=== PATIENT | male | born 1960 ===

== ENCOUNTER 2020-10-02 08:01 | Outpatient (REF) | payer OTHER, SELFPAY ==
--- NOTE | ~2020-10-02 | XR_ITS ---
EXAMINATION: XR HIP, RIGHT CLINICAL INFORMATION: Pain COMPARISON: None TECHNIQUE: Two views of the right hip. FINDINGS: Bone alignment is normal. No fracture, dislocation or bone lesion is seen. There is mild arthritis with joint space narrowing and small osteophytes at the right hip joint. Soft tissues are unremarkable. XR/XR hip RT min 2V IMPRESSION: Mild right hip arthritis.
[2020-10-02 09:08] LABS: Alanine Aminotransferase 27 U/L (0-40); Albumin Level 4.3 g/dL (3.5-5.0); Alkaline Phosphatase 91 U/L (39-117); Anion Gap 13 (12-20); Aspartate Amino Transferase 20 U/L (5-37); Bilirubin Direct 0.3 mg/dL (0.0-0.5); Bilirubin Total 0.7 mg/dL (0.0-1.0); Blood Urea Nitrogen 14 mg/dL (9-16); Calcium 9.2 mg/dL (8.4-10.2); Carbon Dioxide 23 mmol/L (22-29); Chloride 109 mmol/L (96-108); Estimated Glomerular Filt Rate > 60; Glucose Fasting 103 mg/dL (60-99); Potassium 4.5 mmol/L (3.3-5.1); Sodium 140 mmol/L (135-145); Total Protein 7.4 g/dL (6.5-8.0)
[2020-10-02 09:30] LABS: TSH reflex Free T4 1.22 uIU/mL (0.32-4.0)
[2020-10-06 10:11] LABS: Vitamin D 25-OH, D2 <4 ng/mL; Vitamin D 25-OH, D3 29 ng/mL; Vitamin D 25-OH, Total 29 ng/mL (30-100)
== END 2020-10-02 08:02 | disposition home or self-care (01) ==
LOC: HO.LAB 08:01
PROVIDERS: PCP Internal Medicine; Visit Provider Internal Medicine
DX: Z00.01 Encounter for general adult medical examination with abnormal findings (principal); M25.551 Pain in right hip; E66.9 Obesity, unspecified
CPT/HCPCS: 36415; 73502; 80053; 80076; 82248; 82306; 84443

== ENCOUNTER 2021-04-27 12:50 | Outpatient (REF) | payer OTHER, SELFPAY ==
[2021-04-27 14:13] LABS: MANUAL DIFF FLAG NO
[2021-04-27 14:19] LABS: Basophils Percent Auto 0.4 % (0-2); Eosinophils Absolute Auto 0.6 X10*3/uL (0.0-0.4); Hematocrit 41.5 % (42.0-52.0); Hemoglobin 13.9 g/dl (14.0-18.0); Imm Gran Abs Auto 0.01 X10*3/uL (0.00-0.03); Imm Gran Pct Auto 0.1 % (0.0-0.4); Lymphocytes Absolute Auto 2.1 X10*3/uL (1.2-4.9); Lymphocytes Percent Auto 30.7 % (20-40); Mean Corpuscular HGB Conc 33.5 g/dl (31.0-36.0); Mean Corpuscular Hemoglobin 30.6 pg (27.0-33.0); Mean Corpuscular Volume 91.4 fL (80.0-98.0); Mean Platelet Volume 10.4 fL (9.4-12.4); Monocytes Absolute Auto 0.5 X10*3/uL (0.1-1.2); Monocytes Percent Auto 7.4 % (2-11); Neutrophils Absolute Auto 3.6 x10*3/uL (2.0-8.3); Neutrophils Percent Auto 52.4 % (45-73); Platelet Count 235 X10*3/uL (160-400); Red Blood Count 4.54 X10*6/uL (4.60-5.80); White Blood Count 6.9 X10*3/uL (4.8-10.8)
[2021-04-27 14:29] LABS: Estimated Average Glucose 108 mg/dL; Hemoglobin A1c % 5.4 %
[2021-04-27 14:48] LABS: Alanine Aminotransferase 60 U/L (0-40); Albumin Level 4.4 g/dL (3.5-5.0); Alkaline Phosphatase 96 U/L (39-117); Anion Gap 13 (12-20); Aspartate Amino Transferase 39 U/L (5-37); Bilirubin Total 0.4 mg/dL (0.0-1.0); Blood Urea Nitrogen 21 mg/dL (9-16); Calcium 9.2 mg/dL (8.4-10.2); Carbon Dioxide 22 mmol/L (22-29); Chloride 111 mmol/L (96-108); Estimated Glomerular Filt Rate > 60; Glucose Random 93 mg/dL (60-115); Potassium 4.5 mmol/L (3.3-5.1); Sodium 141 mmol/L (135-145); Total Protein 7.6 g/dL (6.5-8.0)
[2021-04-27 15:08] LABS: TSH reflex Free T4 1.89 uIU/mL (0.32-4.0)
[2021-04-29 05:56] LABS: LDL Cholesterol Direct 92 mg/dL (<100)
== END 2021-04-27 12:51 | disposition home or self-care (01) ==
LOC: HO.HMGCLDS 12:50
PROVIDERS: PCP Internal Medicine; Visit Provider Internal Medicine
DX: E66.09 Other obesity due to excess calories (principal); J30.9 Allergic rhinitis, unspecified; M00.859 Arthritis due to other bacteria, unspecified hip; R73.01 Impaired fasting glucose; I10 Essential (primary) hypertension
CPT/HCPCS: 36415; 80053; 83036; 83721; 84443; 85025

== ENCOUNTER 2021-10-20 06:51 | Outpatient (REF) | payer OTHER, SELFPAY ==
[2021-10-20 07:01] LABS: MANUAL DIFF FLAG NO
[2021-10-20 07:24] LABS: Basophils Percent Auto 0.4 % (0-2); Eosinophils Absolute Auto 0.7 X10*3/uL (0.0-0.4); Eosinophils Percent Auto 9.9 % (0-4); Hematocrit 42.5 % (42.0-52.0); Hemoglobin 14.5 g/dl (14.0-18.0); Imm Gran Abs Auto 0.01 X10*3/uL (0.00-0.03); Imm Gran Pct Auto 0.1 % (0.0-0.4); Lymphocytes Absolute Auto 2.6 X10*3/uL (1.2-4.9); Lymphocytes Percent Auto 38.1 % (20-40); Mean Corpuscular HGB Conc 34.1 g/dl (31.0-36.0); Mean Corpuscular Hemoglobin 31.4 pg (27.0-33.0); Mean Platelet Volume 10.1 fL (9.4-12.4); Monocytes Absolute Auto 0.6 X10*3/uL (0.1-1.2); Monocytes Percent Auto 8.3 % (2-11); Neutrophils Absolute Auto 2.9 x10*3/uL (2.0-8.3); Neutrophils Percent Auto 43.2 % (45-73); Platelet Count 226 X10*3/uL (160-400); Red Blood Count 4.62 X10*6/uL (4.60-5.80); Red Cell Distribution Width 12.9 % (11.0-16.0); White Blood Count 6.8 X10*3/uL (4.8-10.8)
[2021-10-20 07:50] LABS: Alanine Aminotransferase 50 U/L (0-40); Albumin Level 4.4 g/dL (3.5-5.0); Alkaline Phosphatase 86 U/L (39-117); Anion Gap 9 (12-20); Aspartate Amino Transferase 37 U/L (5-37); Bilirubin Total 0.9 mg/dL (0.0-1.0); Blood Urea Nitrogen 19 mg/dL (9-16); Calcium 9.6 mg/dL (8.4-10.2); Carbon Dioxide 25 mmol/L (22-29); Chloride 109 mmol/L (96-108); Cholesterol 158 mg/dL; Estimated Glomerular Filt Rate > 60; Glucose Fasting 110 mg/dL (60-99); HDL Cholesterol 58 mg/dL; LDL Cholesterol Calculated 92 mg/dl; Potassium 4.4 mmol/L (3.3-5.1); Sodium 139 mmol/L (135-145); Total Protein 7.4 g/dL (6.5-8.0); Triglycerides 42 mg/dL
== END 2021-10-20 06:52 | disposition home or self-care (01) ==
LOC: HO.LAB 06:51
PROVIDERS: PCP Internal Medicine; Visit Provider Internal Medicine
DX: Z00.01 Encounter for general adult medical examination with abnormal findings (principal); I10 Essential (primary) hypertension; R73.01 Impaired fasting glucose; E66.09 Other obesity due to excess calories
CPT/HCPCS: 36415; 80053; 80061; 85025

== ENCOUNTER 2022-04-19 05:58 | Outpatient (REF) | payer OTHER, SELFPAY ==
[2022-04-19 08:24] LABS: Alanine Aminotransferase 101 U/L (0-40); Albumin Level 4.6 g/dL (3.5-5.0); Alkaline Phosphatase 94 U/L (39-117); Anion Gap 15 (12-20); Aspartate Amino Transferase 62 U/L (5-37); Bilirubin Total 0.9 mg/dL (0.0-1.0); Blood Urea Nitrogen 16 mg/dL (9-16); Calcium 9.6 mg/dL (8.4-10.2); Carbon Dioxide 23 mmol/L (22-29); Chloride 104 mmol/L (96-108); Estimated Glomerular Filt Rate > 60; Glucose Random 106 mg/dL (60-115); Potassium 4.4 mmol/L (3.3-5.1); Sodium 138 mmol/L (135-145); Total Protein 7.8 g/dL (6.5-8.0)
[2022-04-19 09:27] LABS: Estimated Average Glucose 108 mg/dL; Hemoglobin A1c % 5.4 %
== END 2022-04-19 05:59 | disposition home or self-care (01) ==
LOC: HO.LAB 05:58
PROVIDERS: PCP Internal Medicine; Visit Provider Internal Medicine
DX: E66.09 Other obesity due to excess calories (principal); I10 Essential (primary) hypertension; J30.9 Allergic rhinitis, unspecified; M00.859 Arthritis due to other bacteria, unspecified hip; R73.01 Impaired fasting glucose
CPT/HCPCS: 36415; 80053; 83036

== ENCOUNTER 2022-06-30 07:25 | Outpatient (REF) | payer OTHER, SELFPAY ==
--- NOTE | ~2022-06-30 | US_ITS ---
EXAMINATION: US ABDOMEN LIMITED CLINICAL INFORMATION: Elevated LFTs. COMPARISON: None TECHNIQUE: Real-time imaging of the right upper quadrant abdominal viscera. FINDINGS: PANCREAS: Normal. The visualized pancreatic head and body are normal in appearance. The remainder of the pancreas is obscured from visualization by the overlying bowel gas. LIVER: The liver is normal in size. The liver contour is normal. There is diffuse increased liver parenchymal echogenicity. No focal hepatic lesion. There is no intrahepatic biliary duct dilatation seen. GALLBLADDER: Normal. The gallbladder is physiologically distended without evidence of stones, sludge, polyps, wall thickening or pericholecystic fluid. COMMON BILE DUCT: Normal in caliber measuring 0.3 cm in diameter. RIGHT KIDNEY: At the interpolar aspect, a 5 mm benign, simple cyst is seen. No hydronephrosis or renal calculi. The kidney measures 10.5 cm in maximum dimension. FREE FLUID: None. US/US abdomen limited IMPRESSION: 1. There is generalized increase in hepatic echotexture, consistent with fatty infiltration or hepatocellular disease. Please correlate clinically. No focal hepatic mass or intrahepatic biliary dilatation is seen. 2. A 5 mm benign, simple right renal cyst is incidentally seen, for which no imaging follow-up is recommended. 3. Technically limited ultrasound examination of the pancreatic tail.
== END 2022-06-30 07:26 | disposition home or self-care (01) ==
LOC: HO.US 07:25
PROVIDERS: PCP Internal Medicine; Visit Provider Internal Medicine
DX: R79.89 Other specified abnormal findings of blood chemistry (principal)
CPT/HCPCS: 76705

== ENCOUNTER 2022-08-25 12:44 | Outpatient (REF) | payer OTHER, SELFPAY ==
[2022-08-25 13:58] LABS: MANUAL DIFF FLAG NO
[2022-08-25 14:05] LABS: Basophils Percent Auto 0.3 % (0-2); Eosinophils Absolute Auto 0.4 X10*3/uL (0.0-0.4); Eosinophils Percent Auto 5.5 % (0-4); Hematocrit 43.2 % (42.0-52.0); Hemoglobin 14.7 g/dl (14.0-18.0); Imm Gran Abs Auto 0.01 X10*3/uL (0.00-0.03); Imm Gran Pct Auto 0.1 % (0.0-0.4); Lymphocytes Absolute Auto 2.3 X10*3/uL (1.2-4.9); Lymphocytes Percent Auto 28.8 % (20-40); Mean Corpuscular Hemoglobin 30.4 pg (27.0-33.0); Mean Corpuscular Volume 89.4 fL (80.0-98.0); Mean Platelet Volume 10.4 fL (9.4-12.4); Monocytes Absolute Auto 0.7 X10*3/uL (0.1-1.2); Monocytes Percent Auto 8.4 % (2-11); Neutrophils Absolute Auto 4.5 x10*3/uL (2.0-8.3); Neutrophils Percent Auto 56.9 % (45-73); Platelet Count 231 X10*3/uL (160-400); Red Blood Count 4.83 X10*6/uL (4.60-5.80); Red Cell Distribution Width 12.7 % (11.0-16.0); White Blood Count 7.9 X10*3/uL (4.8-10.8)
[2022-08-25 14:34] LABS: Alanine Aminotransferase 34 U/L (0-40); Albumin Level 4.2 g/dL (3.5-5.0); Alkaline Phosphatase 76 U/L (39-117); Anion Gap 15 (12-20); Aspartate Amino Transferase 22 U/L (5-37); Bilirubin Total 0.7 mg/dL (0.0-1.0); Blood Urea Nitrogen 19 mg/dL (9-16); Calcium 9.5 mg/dL (8.4-10.2); Carbon Dioxide 22 mmol/L (22-29); Chloride 108 mmol/L (96-108); Estimated Glomerular Filt Rate > 60; Glucose Random 124 mg/dL (60-115); Potassium 4.6 mmol/L (3.3-5.1); Sodium 140 mmol/L (135-145); Total Protein 7.2 g/dL (6.5-8.0)
[2022-08-25 15:26] LABS: Estimated Average Glucose 111 mg/dL; Hemoglobin A1c % 5.5 %
[2022-08-27 10:08] LABS: LDL Cholesterol Direct 98 mg/dL (<100)
== END 2022-08-25 12:45 | disposition home or self-care (01) ==
LOC: HO.HMGCLDS 12:44
PROVIDERS: PCP Internal Medicine; Visit Provider Internal Medicine
DX: E66.09 Other obesity due to excess calories (principal); M00.859 Arthritis due to other bacteria, unspecified hip; R73.01 Impaired fasting glucose; R79.89 Other specified abnormal findings of blood chemistry; I10 Essential (primary) hypertension
CPT/HCPCS: 36415; 80053; 83036; 83721; 85025

== ENCOUNTER 2022-12-22 08:58 | Outpatient (AMB) | payer OTHER, SELFPAY ==
[2022-12-22 09:01] VITALS: BP 174/92; PULSE 77; O2SAT 98; BMI 33.4
--- NOTE | 2022-12-22 09:01 | A.OFFPC_ITS ---
Vital Signs 12/22/22 09:01 Height 5 ft 6 in Weight 207 lb 4 oz BMI 33.4 BP 174/92 H Blood Pressure Location Rt brachial Position Sitting Pulse 77 Pulse Source Pulse Oximeter Pulse Oximetry (%) 98 Oxygen Delivery Method Room Air Intake Visit Reasons: Annual PE Allergies N.K.D.A. Allergy (Mild, Uncoded 08/25/22 12:21) none Medication List - Last Reconciled 12/22/22 by Poonam Palomares MD atenolol 50 mg PO DAILY 90 days cetirizine (Zyrtec) 10 mg PO DAILY PRN 90 days fluticasone propionate 50 mcg/actuation (Flonase Allergy Relief) 1 spray intranasal BID 30 days meloxicam 7.5 mg PO DAILY 90 days omeprazole 40 mg PO DAILY Tobacco use date assessed: 12/22/22 Dental Screening Dental Screen Date: 12/22/22 Did you have a dental visit in the last 12 months?: Yes Did you have a dental problem in the last 6 months where you did not have access to dental care?: No Was dental information given to patient?: No HPI Annual PE HPI Details Physical exam appointment Blood pressure medication changed to atenolol chlorthalidone 50-25 , currently patient is taking atenolol 50 mg blood pressure is 174/92 Other medications are omeprazole 40 mg for chronic GERD Meloxicam for bilateral hip osteoarthritis Flonase nasal spray for allergic rhinitis On examination today patient have limited range of motion of right shoulder patient says that he had a tendinitis surgery 5 years ago and since then he has discomfort so he preferred not to raise all the way up I discussed with the patient that if he stopped moving the shoulder he is going to developed a frozen shoulder. Labs were done August of this year new set of lab will be done before next visit in 3 months for regular appointment But patient need to return in 3 weeks for blood pressure monitoring he need to bring his blood pressure log along Colonoscopy report that I have in the system is from 23/05 patient had a tubular adenoma I have sent a message and also created a referral for him to see gastroenterology [facility] Social History Housing: House Alcohol intake: current Alcohol intake frequency: a few times a month Patient Tobacco Use Status: Never used Tobacco e-Cigarette/Vaping Use: Never Used service: No Current occupational status: employed 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 How often do you have a drink containing alcohol?: 2-4 times a month 2. How many drinks containing alcohol do you have on a typical day when you are drinking?: 1 or 2 3. How often do you have six or more drinks on one occasion?: Never Total Score: 2 Score Reviewed/Action Taken: Yes JONN-7 AMB Questionnaire JONN-7 Date JONN - 7 assessed: 09/23/21 Source: Developed by Drs. Robert Anglin, Pascale Blankenship, Glenn Blue and colleagues, with an educational ehsan from [employer]. Review of Systems Const Denies chills, Denies fever(s) and Denies headache(s) Eyes Denies blurry vision ENT Denies headache(s), Denies nasal discharge, Denies nasal obstruction, Denies odynophagia and Denies sinus pain Card Denies chest pain at rest and Denies chest pain with activity Resp Denies cough and Denies hemoptysis GI Denies diarrhea, Denies odynophagia, Denies vomiting and Denies hematemesis Reports as per HPI Musc Denies abnormal gait Skin/Breast Reports as per HPI Neuro Denies Neuro-related abnormal movements, Denies Abnormal speech present, Denies abnormal gait, Denies headache(s) and Denies Sensory deficit (Neuro) Psych Denies mood swings and Denies paranoia Endo Reports as per HPI Bashir/Lymph Reports as per HPI Aller/Immun Reports as per HPI Physical exam (Primary Care) Vital Signs: Last Vital Signs Pulse 77 12/22/22 09:01 BP 174/92 H 12/22/22 09:01 Pulse Ox 98 12/22/22 09:01 Oxygen Delivery Method Room Air 12/22/22 09:01 BMI result Body Mass Index 33.4 Tobacco/Smoking Status: Tobacco use Status Tobacco use date assessed 12/22/22 12/22/22 09:04 Patient Tobacco Use Status Never used Tobacco 12/22/22 09:04 e-Cigarette/Vaping Use Never Used 12/22/22 09:04 Thrive Assessment: Date of Thrive Assessment Date Thrive assessed 09/23/21 12/22/22 09:04 Const General: cooperative, comfortable and no acute distress Orientation/consciousness: patient oriented x3 HENMT Head: Yes normocephalic and Yes atraumatic Eyes General: appearance normal, both eyes and all related structures Pupils: Equal, round and reactive pupils present EOM: EOMs intact bilaterally Neck Neck: Yes supple and No lymphadenopathy Thyroid: Thyroid normal Lymphatic: no lymphadenopathy noted Chest Breast/axilla palpation: normal palpation of the breasts Resp Effort & Inspection: normal respiratory effort and able to speak in complete sentences Auscultation: clear to auscultation bilaterally Cardio Heart sounds: S1 normal heart sound present and S2 normal heart sound present GI Palpation (GI): Soft to palpation and nontender Auscultation: normal bowel sounds General: Yes no CVA tenderness Back/Spine/Pelvis Back: no CVA tenderness Skin General skin exam: elasticity normal and turgor normal Neuro General: patient oriented x3 and gait normal Cranial nerves: Yes Equal, round and reactive pupils present Speech: No Abnormal speech present Sensory Exam: No Sensory deficit (Neuro) Coordination: tandem gait normal and Romberg test negative Extrem Other: Limited range of motion right shoulder in both hips General: Yes normal exam except as noted and No edema Assessment and Plan Assessment & Plan (1) Encounter for general adult medical examination with abnormal findings: Code(s): Z00.01 - Encounter for general adult medical examination with abnormal findings (2) Hip pain, right: Code(s): M25.551 - Pain in right hip (3) Allergic rhinitis: Code(s): J30.9 - Allergic rhinitis, unspecified (4) Impaired fasting blood sugar: Code(s): R73.01 - Impaired fasting glucose (5) Obesity due to excess calories: Code(s): E66.09 - Other obesity due to excess calories (6) Hypertension, essential: Code(s): I10 - Essential (primary) hypertension (7) LFT elevation: Code(s): R79.89 - Other specified abnormal findings of blood chemistry (8) Tubular adenoma of colon: Code(s): D12.6 - Benign neoplasm of colon, unspecified (9) Colon cancer screening: Code(s): Z12.11 - Encounter for screening for malignant neoplasm of colon (10) Tendinopathy of right shoulder: Code(s): M67.911 - Unspecified disorder of synovium and tendon, right shoulder Plan Physical exam appointment Blood pressure medication changed to atenolol chlorthalidone 50-25 , currently patient is taking atenolol 50 mg blood pressure is 174/92 Other medications are omeprazole 40 mg for chronic GERD Meloxicam for bilateral hip osteoarthritis Flonase nasal spray for allergic rhinitis On examination today patient have limited range of motion of right shoulder patient says that he had a tendinitis surgery 5 years ago and since then he has discomfort so he preferred not to raise all the way up I discussed with the patient that if he stopped moving the shoulder he is going to developed a frozen shoulder. Labs were done August of this year new set of lab will be done before next visit in 3 months for regular appointment But patient need to return in 3 weeks for blood pressure monitoring he need to bring his blood pressure log along Colonoscopy report that I have in the system is from 23/05 patient had a tubular adenoma I have sent a message and also created a referral for him to see gastroenterology Orders: Orders Comprehensive Met. Panel 3 Months E66.09 - Other obesity due to excess calories, I10 - Essential (primary) hypertension, J30.9 - Allergic rhinitis, unspecified, M25.551 - Pain in right hip, R73.01 - Impaired fasting glucose, R79.89 - Other specified abnormal findings of blood chemistry, Z00.01 - Encounter for general adult medical examination with abnormal findings Complete Blood Count Auto Diff 3 Months E66.09 - Other obesity due to excess calories, I10 - Essential (primary) hypertension, J30.9 - Allergic rhinitis, unspecified, M25.551 - Pain in right hip, R73.01 - Impaired fasting glucose, R79.89 - Other specified abnormal findings of blood chemistry, Z00.01 - Encounter for general adult medical examination with abnormal findings Hemoglobin A1c 3 Months R73.01 - Impaired fasting glucose Referrals Gastroenterology Referral D12.6 - Benign neoplasm of colon, unspecified, Z12.11 - Encounter for screening for malignant neoplasm of colon Medications: New atenolol-chlorthalidone 50-25 mg 1 tab PO DAILY 30 tabs 0RF Discontinued atenolol Discontinued Reason: Doctor's Order 50 mg PO DAILY 90 days 90 tabs 1RF Coding Level of Care Code Est Pt Prev Care 40-64y(77611) Diagnoses Encounter for general adult medical examination with abnormal findings Z00.01 Hip pain, right M25.551 Allergic rhinitis J30.9 Impaired fasting blood sugar R73.01 Obesity due to excess calories E66.09 Hypertension, essential I10 LFT elevation R79.89 Tubular adenoma of colon D12.6 Colon cancer screening Z12.11 Tendinopathy of right shoulder M67.911
== END 2022-12-22 10:05 | disposition home or self-care (01) ==
PROVIDERS: Visit Provider Internal Medicine
DX: Z00.01 Encounter for general adult medical examination with abnormal findings (principal); I10 Essential (primary) hypertension; Z68.33 Body mass index [BMI] 33.0-33.9, adult; E66.09 Other obesity due to excess calories; M25.551 Pain in right hip; J30.9 Allergic rhinitis, unspecified; R73.01 Impaired fasting glucose; R79.89 Other specified abnormal findings of blood chemistry; D12.6 Benign neoplasm of colon, unspecified; Z12.11 Encounter for screening for malignant neoplasm of colon; M67.911 Unspecified disorder of synovium and tendon, right shoulder
CPT/HCPCS: 99396

== ENCOUNTER 2023-01-17 14:52 | Outpatient (AMB) | payer OTHER, SELFPAY ==
--- NOTE | 2023-01-17 14:59 | MHC.PC.OV ---
Vital Signs 01/17/23 15:03 Height 5 ft 6 in Weight 210 lb 4 oz BMI 33.9 BP 158/80 H Blood Pressure Location Lt brachial Position Sitting Pulse 70 Pulse Source Pulse Oximeter Pulse Oximetry (%) 93 Oxygen Delivery Method Room Air Intake Visit Reasons: 3 week fu Allergies N.K.D.A. Allergy (Mild, Uncoded 08/25/22 12:21) none Medication List - Last Reconciled 01/17/23 by Poonam Palomares MD atenolol-chlorthalidone 50-25 mg 1 tab PO DAILY cetirizine (Zyrtec) 10 mg PO DAILY PRN 90 days fluticasone propionate 50 mcg/actuation (Flonase Allergy Relief) 1 spray intranasal BID 30 days meloxicam 7.5 mg PO DAILY 90 days omeprazole 40 mg PO DAILY Tobacco use date assessed: 01/17/23 Fall risk assessment: No Falls in past year Last assessed Fall Risk: 01/17/23 Dental Screening Dental Screen Date: 01/17/23 Did you have a dental visit in the last 12 months?: Yes Did you have a dental problem in the last 6 months where you did not have access to dental care?: No Was dental information given to patient?: No HPI 3 week fu HPI Details 62-year-old gentleman came in today to have his blood pressure check I changes medication last visit to atenolol chlorthalidone 50-25 mg he is tolerating medication no side effects Blood pressure has improved from before but still 158/80. He is monitoring it at home and it is running around 140s 150s systolic. I am changing the medication dose to atenolol 100-chlorthalidone 25 mg patient is to continue monitoring blood pressure at home He will return in 3 months for follow-up appointment. 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 1. Little interest or pleasure in doing things: not at all 2. Feeling down, depressed, or hopeless: not at all 3. Trouble falling or staying asleep, or sleeping too much: not at all 4. Feeling tired or having little energy: several days 5. Poor appetite or overeating: not at all 6. Feeling bad about yourself - or that you are a failure or have let yourself or your family down: not at all 7. Trouble concentrating on things, such as reading the newspaper or watching television: not at all 8. Moving or speaking so slowly that other people could have noticed. Or the opposite - being so fidgety or restless that you have been moving around a lot more than usual: not at all 9. Thoughts that you would be better off or of hurting yourself in some way: not at all Total score: 1 Depression Screening Interpretation: Negative 59598 - PHQ-9 Billing: Yes Source: Developed by Drs. Robert Anglin, Pascale Blankenship, Glenn Blue and colleagues, with an educational ehsan from [employer]. Thrive Questionnaire Date Thrive assessed: 09/23/21 Currently or been in a relationship where the following occur: no concerns reported AUDIT C Alcohol Use Questionnaire (AUDIT-C) 1. How often do you have a drink containing alcohol?: Monthly or less 2. How many drinks containing alcohol do you have on a typical day when you are drinking?: 1 or 2 3. How often do you have six or more drinks on one occasion?: Never Total Score: 1 Score Reviewed/Action Taken: Yes JONN-7 AMB Questionnaire JONN-7 Date JONN - 7 assessed: 09/23/21 Feeling nervous, anxious, or on edge: 0 = Not at all Not being able to stop or control worryin = Not at all Worrying too much about different things: 0 = Not at all Trouble relaxin = Not at all Being so restless that it is hard to sit still: 0 = Not at all Becoming easily annoyed or irritable: 0 = Not at all Feeling afraid as if something awful might happen: 0 = Not at all Total JONN-7 score (0-4 normal; 5-9 mild; 10-14 moderate; 15-21 severe): 0 Source: Developed by Drs. Robert Anglin, Pascale Blankenship, Glenn Blue and colleagues, with an educational ehsan from [employer]. JONN-7 Assessment Billing JONN-7 Assessment Tool: JONN-7 Assessment [id number] Review of Systems Const Denies chills and Denies fever(s) ENT Denies epistaxis and Denies nasal discharge Card Denies chest pain Resp Denies chest congestion, Denies cough and Denies hemoptysis GI Denies diarrhea and Denies nausea Skin/Breast Denies rash Neuro Reports no additional complaints Psych Reports no additional complaints Endo Reports no additional complaints Physical exam (Primary Care) Vital Signs: Last Vital Signs Pulse 70 01/17/23 15:03 BP 158/80 H 01/17/23 15:03 Pulse Ox 93 01/17/23 15:03 Oxygen Delivery Method Room Air 01/17/23 15:03 BMI result Body Mass Index 33.9 Tobacco/Smoking Status: Tobacco use Status Tobacco use date assessed 01/17/23 01/17/23 15:02 Patient Tobacco Use Status Never used Tobacco 01/17/23 15:02 e-Cigarette/Vaping Use Never Used 01/17/23 15:02 Depression Screening Interpretation: Negative Thrive Assessment: Date of Thrive Assessment Date Thrive assessed 09/23/21 01/17/23 15:02 Currently or been in a relationship where the following occur: no concerns reported Const General: cooperative, comfortable and no acute distress Orientation/consciousness: patient oriented x3 HENMT Head: Yes normocephalic Eyes General: appearance normal, both eyes and all related structures Neck Neck: Yes supple Resp Effort & Inspection: normal respiratory effort, no cough and no stridor Cardio Rhythm: regular rhythm Heart sounds: S1 normal heart sound present and S2 normal heart sound present Skin General skin exam: turgor normal Neuro General: patient oriented x3, tone normal and moves all extremities Extrem Right lower extremity: no edema Left lower extremity: no edema Assessment and Plan Assessment & Plan (1) Uncontrolled hypertension: Code(s): I10 - Essential (primary) hypertension Plan 62-year-old gentleman came in today to have his blood pressure check I changes medication last visit to atenolol chlorthalidone 50-25 mg he is tolerating medication no side effects Blood pressure has improved from before but still 158/80. He is monitoring it at home and it is running around 140s 150s systolic. I am changing the medication dose to atenolol 100-chlorthalidone 25 mg patient is to continue monitoring blood pressure at home He will return in 3 months for follow-up appointment. We discussed dash diet today Medications: New atenolol-chlorthalidone 100-25 mg 1 tab PO DAILY 90 tabs 0RF Discontinued atenolol-chlorthalidone 50-25 mg Discontinued Reason: Doctor's Order 1 tab PO DAILY 30 tabs 0RF Coding Level of Care Code Est Pt Level 3 (23010) Diagnoses Uncontrolled hypertension I10 Additional Codes JONN-7 Assessment Billing - JONN-7 Assessment Tool: JONN-7 Assessment [id number] ([id number])
[2023-01-17 15:03] VITALS: BP 158/80; PULSE 70; O2SAT 93; BMI 33.9
== END 2023-01-17 16:53 | disposition home or self-care (01) ==
PROVIDERS: PCP Internal Medicine; Visit Provider Internal Medicine
DX: I10 Essential (primary) hypertension (principal)
CPT/HCPCS: 99213

== ENCOUNTER 2023-03-30 08:51 | Outpatient (AMB) | payer OTHER, SELFPAY ==
[2023-03-30 08:55] VITALS: BP 142/88; PULSE 62; O2SAT 90; BMI 34.1
--- NOTE | 2023-03-30 08:55 | MHC.PC.OV ---
Vital Signs 03/30/23 08:55 Height 5 ft 6 in Weight 211 lb 6 oz BMI 34.1 BP 142/88 H Blood Pressure Location Rt brachial Position Sitting Pulse 62 Pulse Source Pulse Oximeter Pulse Oximetry (%) 90 L Oxygen Delivery Method Room Air Intake Visit Reasons: 3 month follow up Allergies N.K.D.A. Allergy (Mild, Uncoded 08/25/22 12:21) none Medication List - Last Reconciled 03/30/23 by Poonam Palomares MD atenolol-chlorthalidone 100-25 mg 1 tab PO DAILY cetirizine (Zyrtec) 10 mg PO DAILY PRN 90 days fluticasone propionate 50 mcg/actuation (Flonase Allergy Relief) 1 spray intranasal BID 30 days meloxicam 7.5 mg PO DAILY 90 days omeprazole 40 mg PO DAILY Tobacco use date assessed: 03/30/23 Fall risk assessment: No Falls in past year Last assessed Fall Risk: 03/30/23 Dental Screening Dental Screen Date: 03/30/23 Did you have a dental visit in the last 12 months?: No Did you have a dental problem in the last 6 months where you did not have access to dental care?: No Was dental information given to patient?: Patient has dentist HPI 3 month follow up HPI Details Patient is 62-year-old gentleman came in today for his follow-up appointment on blood pressure His blood pressure continued to be elevated it was 158/80 in January and now it is on 42/88 Patient is taking atenolol chlorthalidone 100-25 mg I am adding amlodipine 5 mg as well. He is due for blood test patient will have that done today He is no longer having severe joint pains I have told him to stop taking meloxicam He may take Aleve as needed with food He has also stopped taking omeprazole there is no epigastric discomfort or acid reflux he tells me Allergies are stable patient continued to use Flonase nasal spray and cetirizine as needed. BMI is still elevated at 34.1 need to lose weight. 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 05936 - PHQ-9 Billing: Patient declined-do not bill Source: Developed by Drs. Robert Anglin, Pascale Blankenship, Glenn Blue and colleagues, with an educational ehsan from [employer]. Thrive Questionnaire Date Thrive assessed: 09/23/21 AUDIT C Alcohol Use Questionnaire (AUDIT-C) 1. How often do you have a drink containing alcohol?: Monthly or less 2. How many drinks containing alcohol do you have on a typical day when you are drinking?: 1 or 2 3. How often do you have six or more drinks on one occasion?: Never Total Score: 1 Score Reviewed/Action Taken: Yes JONN-7 AMB Questionnaire JONN-7 Date JONN - 7 assessed: 09/23/21 Source: Developed by Drs. oRbert Anglin, Pascale Blankenship, Glenn Blue and colleagues, with an educational ehsan from [employer]. Review of Systems Const Denies chills, Denies excessive sweating, Denies fever(s) and Denies poor appetite Eyes Denies blurry vision and Denies eye pain ENT Denies disequilibrium, Denies sore throat, Denies throat swelling and Denies tongue swelling Card Denies chest pain at rest, Denies radiating jaw, neck or arm pain and Denies paroxysmal nocturnal dyspnea Resp Denies cough and Denies hemoptysis GI Denies melena, Denies change in stool character, Denies coffee ground emesis and Denies vomiting Musc Reports as per HPI Skin/Breast Reports as per HPI Neuro Denies tremor(s) and Denies disequilibrium Endo Denies cold intolerance and Denies excessive sweating Aller/Immun Denies throat swelling and Denies tongue swelling Physical exam (Primary Care) Vital Signs: Last Vital Signs Pulse 62 03/30/23 08:55 BP 142/88 H 03/30/23 08:55 Pulse Ox 90 L 03/30/23 08:55 Oxygen Delivery Method Room Air 03/30/23 08:55 BMI result Body Mass Index 34.1 Tobacco/Smoking Status: Tobacco use Status Tobacco use date assessed 03/30/23 03/30/23 09:00 Patient Tobacco Use Status Never used Tobacco 03/30/23 08:58 e-Cigarette/Vaping Use Never Used 03/30/23 08:58 Thrive Assessment: Date of Thrive Assessment Date Thrive assessed 09/23/21 03/30/23 08:58 Const General: cooperative, comfortable and no acute distress Orientation/consciousness: patient oriented x3 HENMT Head: Yes normocephalic and Yes atraumatic Ears: hearing grossly normal bilaterally Eyes General: appearance normal, both eyes and all related structures Neck Neck: Yes no lymphadenopathy and No tracheal deviation Resp Effort & Inspection: normal respiratory effort, able to speak in complete sentences and no audible wheezes Cardio Rhythm: regular rhythm Heart sounds: S1 normal heart sound present and S2 normal heart sound present GI Palpation (GI): Soft to palpation and nontender Auscultation: normal bowel sounds Skin General skin exam: turgor normal Neuro General: patient oriented x3 and moves all extremities Gait exam (Neuro): Normal gait present Extrem Right lower extremity: no edema Left lower extremity: no edema Psych Affect: normal affect Attitude: cooperative Assessment and Plan Assessment & Plan (1) Hypertension, essential: Code(s): I10 - Essential (primary) hypertension (2) Obesity due to excess calories: Code(s): E66.09 - Other obesity due to excess calories Qualifiers: Body mass index: BMI 34.0-34.9 Obesity classification: adult class 1 (BMI 30 - 34.9) Serious obesity comorbidity presence: with serious comorbidity Qualified Code(s): E66.09 - Other obesity due to excess calories; Z68.34 - Body mass index [BMI] 34.0-34.9, adult (3) Impaired fasting blood sugar: Code(s): R73.01 - Impaired fasting glucose (4) LFT elevation: Code(s): R79.89 - Other specified abnormal findings of blood chemistry Plan Patient is 62-year-old gentleman came in today for his follow-up appointment on blood pressure His blood pressure continued to be elevated it was 158/80 in January and now it is on 42 Patient is taking atenolol chlorthalidone 100-25 mg I am adding amlodipine 5 mg as well. He is due for blood test patient will have that done today We will check hemoglobin A1c patient have impaired fasting sugar He is no longer having severe joint pains I have told him to stop taking meloxicam He may take Aleve as needed with food He has also stopped taking omeprazole there is no epigastric discomfort or acid reflux he tells me Allergies are stable patient continued to use Flonase nasal spray and cetirizine as needed. BMI is still elevated at 34.1 need to lose weight. Patient already have appointment in June Orders: Orders Hemoglobin A1c Today R73.01 - Impaired fasting glucose Complete Blood Count Auto Diff Today E66.09 - Other obesity due to excess calories, I10 - Essential (primary) hypertension, R73.01 - Impaired fasting glucose, R79.89 - Other specified abnormal findings of blood chemistry Comprehensive Met. Panel Today E66.09 - Other obesity due to excess calories, I10 - Essential (primary) hypertension, R73.01 - Impaired fasting glucose, R79.89 - Other specified abnormal findings of blood chemistry LDL Cholesterol Direct Today E66.09 - Other obesity due to excess calories, I10 - Essential (primary) hypertension, R73.01 - Impaired fasting glucose, R79.89 - Other specified abnormal findings of blood chemistry Medications: New amlodipine 5 mg PO DAILY 90 tabs 0RF Refilled cetirizine (Zyrtec) 10 mg PO DAILY PRN 90 tabs 3RF allergy symptoms 90 days fluticasone propionate 50 mcg/actuation (Flonase Allergy Relief) administer into each nostril 1 spray intranasal BID 16 grams 4RF 30 days atenolol-chlorthalidone 100-25 mg 1 tab PO DAILY 90 tabs 0RF Discontinued omeprazole Discontinued Reason: Doctor's Order 40 mg PO DAILY 30 caps 0RF meloxicam Discontinued Reason: Doctor's Order 7.5 mg PO DAILY 90 days 90 tabs 0RF M25.551 - Pain in right hip Coding Level of Care Code Est Pt Level 4 (41981) Diagnoses Hypertension, essential I10 Class 1 obesity due to excess calories with serious comorbidity and body mass index (BMI) of 34.0 to 34.9 in adult E66.09; Z68.34 Body mass index: BMI 34.0-34.9 Obesity classification: adult class 1 (BMI 30 - 34.9) Serious obesity comorbidity presence: with serious comorbidity Impaired fasting blood sugar R73.01 LFT elevation R79.89
== END 2023-03-30 09:46 | disposition home or self-care (01) ==
PROVIDERS: PCP Internal Medicine; Visit Provider Internal Medicine
DX: I10 Essential (primary) hypertension (principal); E66.09 Other obesity due to excess calories; Z68.34 Body mass index [BMI] 34.0-34.9, adult; R73.01 Impaired fasting glucose; R79.89 Other specified abnormal findings of blood chemistry
CPT/HCPCS: 99214

== ENCOUNTER 2023-03-30 09:13 | Outpatient (REF) | payer OTHER, SELFPAY ==
[2023-03-30 11:36] LABS: MANUAL DIFF FLAG NO
[2023-03-30 11:48] LABS: Basophils Percent Auto 0.5 % (0-2); Eosinophils Absolute Auto 0.8 X10*3/uL (0.0-0.4); Eosinophils Percent Auto 9.4 % (0-4); Hematocrit 43.3 % (42.0-52.0); Hemoglobin 14.9 g/dl (14.0-18.0); Imm Gran Abs Auto 0.02 X10*3/uL (0.00-0.03); Imm Gran Pct Auto 0.2 % (0.0-0.4); Lymphocytes Absolute Auto 2.7 X10*3/uL (1.2-4.9); Lymphocytes Percent Auto 32.8 % (20-40); Mean Corpuscular HGB Conc 34.4 g/dl (31.0-36.0); Mean Corpuscular Volume 90.2 fL (80.0-98.0); Mean Platelet Volume 10.7 fL (9.4-12.4); Monocytes Absolute Auto 0.7 X10*3/uL (0.1-1.2); Neutrophils Percent Auto 49.1 % (45-73); Platelet Count 237 X10*3/uL (160-400); Red Cell Distribution Width 12.5 % (11.0-16.0); White Blood Count 8.1 X10*3/uL (4.8-10.8)
[2023-03-30 11:52] LABS: Estimated Average Glucose 111 mg/dL; Hemoglobin A1c % 5.5 % (<6.0)
[2023-03-30 12:06] LABS: Alanine Aminotransferase 104 U/L (0-40); Albumin Level 4.4 g/dL (3.5-5.0); Alkaline Phosphatase 84 U/L (39-117); Anion Gap 14 (12-20); Aspartate Amino Transferase 63 U/L (5-37); Bilirubin Total 0.8 mg/dL (0.0-1.0); Blood Urea Nitrogen 23 mg/dL (9-16); Calcium 9.9 mg/dL (8.4-10.2); Carbon Dioxide 23 mmol/L (22-29); Chloride 105 mmol/L (96-108); Estimated Glomerular Filt Rate > 60; Glucose Random 112 mg/dL (60-115); Potassium 3.8 mmol/L (3.3-5.1); Sodium 138 mmol/L (135-145)
[2023-04-01 11:38] LABS: LDL Cholesterol Direct 124 mg/dL (<100)
== END 2023-03-30 09:14 | disposition home or self-care (01) ==
LOC: HO.HMGCLDS 09:13
PROVIDERS: PCP Internal Medicine; Visit Provider Internal Medicine
DX: Z00.01 Encounter for general adult medical examination with abnormal findings (principal); M25.551 Pain in right hip; J30.9 Allergic rhinitis, unspecified; E66.09 Other obesity due to excess calories; I10 Essential (primary) hypertension; R79.89 Other specified abnormal findings of blood chemistry; R73.01 Impaired fasting glucose
CPT/HCPCS: 36415; 80053; 83036; 83721; 85025

== ENCOUNTER 2023-07-03 09:17 | Outpatient (AMB) | payer OTHER, SELFPAY ==
--- NOTE | 2023-07-03 09:19 | MHC.PC.OV ---
Vital Signs 07/03/23 09:25 Height 5 ft 6 in Weight 206 lb 8 oz BMI 33.3 BP 132/78 Blood Pressure Location Rt brachial Position Sitting Pulse 67 Pulse Source Pulse Oximeter Pulse Oximetry (%) 99 Oxygen Delivery Method Room Air Intake Visit Reasons: 6 month fu Allergies N.K.D.A. Allergy (Mild, Uncoded 08/25/22 12:21) none Medication List - Last Reconciled 07/03/23 by Poonam Palomares MD amlodipine 5 mg PO DAILY atenolol-chlorthalidone 100-25 mg 1 tab PO DAILY cetirizine (Zyrtec) 10 mg PO DAILY PRN 90 days fluticasone propionate 50 mcg/actuation (Flonase Allergy Relief) 1 spray intranasal BID 30 days Tobacco use date assessed: 07/03/23 Fall risk assessment: No Falls in past year Last assessed Fall Risk: 07/03/23 Dental Screening Dental Screen Date: 07/03/23 Did you have a dental visit in the last 12 months?: No Did you have a dental problem in the last 6 months where you did not have access to dental care?: No Was dental information given to patient?: Patient has dentist HPI 6 month fu HPI Details Patient is 62-year-old gentleman came in today for his follow-up appointment on blood pressure Patient is doing well , he has started eating healthy was able to lose 10 lb and is feeling much better Blood pressure is well-controlled Patient is taking atenolol chlorthalidone 100-25 mg I am adding amlodipine 5 mg as well. Patient has osteoarthritis multiple joints he is currently taking no medication and is able to tolerate pain Since he has started exercising he is feeling better as far as his joint pains are concerned Allergies are stable patient has stopped using the Flonase nasal spray BMI is still elevated patient is trying to lose more weight Labs were done in March of last year he will have another set of lab before his upcoming visit in September [facility] Social History Housing: House Alcohol intake: current Alcohol intake frequency: a few times a month Patient Tobacco Use Status: Never used Tobacco e-Cigarette/Vaping Use: Never Used service: No Current occupational status: employed 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 21295 - PHQ-9 Billing: Patient declined-do not bill Source: Developed by Drs. Robert Anglin, Glenn Barrera and colleagues, with an educational ehsan from [employer]. Thrive Questionnaire Date Thrive assessed: 09/23/21 AUDIT C Alcohol Use Questionnaire (AUDIT-C) 1. How often do you have a drink containing alcohol?: Monthly or less 2. How many drinks containing alcohol do you have on a typical day when you are drinking?: 1 or 2 3. How often do you have six or more drinks on one occasion?: Never Total Score: 1 Score Reviewed/Action Taken: Yes JONN-7 AMB Questionnaire JONN-7 Date JONN - 7 assessed: 09/23/21 Source: Developed by Drs. Robert Anglin, Pascale Blankenship, Glenn Blue and colleagues, with an educational ehsan from [employer]. Review of Systems Const Denies chills and Denies fever(s) ENT Denies epistaxis and Denies nasal discharge Card Denies chest pain Resp Denies chest congestion, Denies cough and Denies hemoptysis GI Denies diarrhea and Denies nausea Skin/Breast Denies rash Neuro Reports no additional complaints Psych Reports no additional complaints Endo Reports no additional complaints Physical exam (Primary Care) Vital Signs: Last Vital Signs Pulse 67 07/03/23 09:25 BP 132/78 07/03/23 09:25 Pulse Ox 99 07/03/23 09:25 Oxygen Delivery Method Room Air 07/03/23 09:25 BMI result Body Mass Index 33.3 Tobacco/Smoking Status: Tobacco use Status Tobacco use date assessed 07/03/23 07/03/23 09:21 Patient Tobacco Use Status Never used Tobacco 07/03/23 09:21 e-Cigarette/Vaping Use Never Used 07/03/23 09:21 Thrive Assessment: Date of Thrive Assessment Date Thrive assessed 09/23/21 07/03/23 09:21 Const General: cooperative, comfortable and no acute distress Orientation/consciousness: patient oriented x3 HENMT Head: Yes normocephalic Eyes General: appearance normal, both eyes and all related structures Neck Neck: Yes supple Resp Effort & Inspection: normal respiratory effort, no cough and no stridor Cardio Rhythm: regular rhythm Heart sounds: S1 normal heart sound present and S2 normal heart sound present Skin General skin exam: turgor normal Neuro General: patient oriented x3, tone normal and moves all extremities Extrem Right lower extremity: no edema Left lower extremity: no edema Assessment and Plan Assessment & Plan (1) Hypertension, essential: Code(s): I10 - Essential (primary) hypertension (2) Impaired fasting blood sugar: Code(s): R73.01 - Impaired fasting glucose (3) LFT elevation: Code(s): R79.89 - Other specified abnormal findings of blood chemistry (4) Osteoarthritis of both knees: Code(s): M17.0 - Bilateral primary osteoarthritis of knee Qualifiers: Osteoarthritis type: primary Qualified Code(s): M17.0 - Bilateral primary osteoarthritis of knee (5) Obesity due to excess calories: Code(s): E66.09 - Other obesity due to excess calories Qualifiers: Body mass index: BMI 33.0-33.9 Obesity classification: adult class 1 (BMI 30 - 34.9) Serious obesity comorbidity presence: with serious comorbidity Qualified Code(s): E66.09 - Other obesity due to excess calories; Z68.33 - Body mass index [BMI] 33.0-33.9, adult (6) Bacterial arthritis of hip: Code(s): M00.859 - Arthritis due to other bacteria, unspecified hip Plan Patient is 62-year-old gentleman came in today for his follow-up appointment on blood pressure Patient is doing well , he has started eating healthy was able to lose 10 lb and is feeling much better Blood pressure is well-controlled Patient is taking atenolol chlorthalidone 100-25 mg I am adding amlodipine 5 mg as well. Patient has osteoarthritis multiple joints he is currently taking no medication and is able to tolerate pain Since he has started exercising he is feeling better as far as his joint pains are concerned Allergies are stable patient has stopped using the Flonase nasal spray BMI is still elevated patient is trying to lose more weight Liver enzymes slightly elevated but stable Labs were done in March of last year he will have another set of lab before his upcoming visit in September Orders: Orders Comprehensive [place]. Panel Fast 3 Months E66.09 - Other obesity due to excess calories, I10 - Essential (primary) hypertension, M00.859 - Arthritis due to other bacteria, unspecified hip, R73.01 - Impaired fasting glucose, R79.89 - Other specified abnormal findings of blood chemistry Hemoglobin A1c 3 Months E66.09 - Other obesity due to excess calories, I10 - Essential (primary) hypertension, M00.859 - Arthritis due to other bacteria, unspecified hip, R73.01 - Impaired fasting glucose, R79.89 - Other specified abnormal findings of blood chemistry Complete Blood Count Auto Diff 3 Months E66.09 - Other obesity due to excess calories, I10 - Essential (primary) hypertension, M00.859 - Arthritis due to other bacteria, unspecified hip, R73.01 - Impaired fasting glucose, R79.89 - Other specified abnormal findings of blood chemistry Lipid Panel 3 Months E66.09 - Other obesity due to excess calories, I10 - Essential (primary) hypertension, M00.859 - Arthritis due to other bacteria, unspecified hip, R73.01 - Impaired fasting glucose, R79.89 - Other specified abnormal findings of blood chemistry Coding Level of Care Code Est Pt Level 4 (00563) Diagnoses Hypertension, essential I10 Impaired fasting blood sugar R73.01 LFT elevation R79.89 Primary osteoarthritis of both knees M17.0 Osteoarthritis type: primary Class 1 obesity due to excess calories with serious comorbidity and body mass index (BMI) of 33.0 to 33.9 in adult E66.09; Z68.33 Body mass index: BMI 33.0-33.9 Obesity classification: adult class 1 (BMI 30 - 34.9) Serious obesity comorbidity presence: with serious comorbidity 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
[2023-07-03 09:25] VITALS: BP 132/78; PULSE 67; O2SAT 99; BMI 33.3
== END 2023-07-03 12:18 | disposition home or self-care (01) ==
PROVIDERS: PCP Internal Medicine; Visit Provider Internal Medicine
DX: I10 Essential (primary) hypertension (principal); R73.01 Impaired fasting glucose; R79.89 Other specified abnormal findings of blood chemistry; M17.0 Bilateral primary osteoarthritis of knee; E66.09 Other obesity due to excess calories; Z68.33 Body mass index [BMI] 33.0-33.9, adult
CPT/HCPCS: 99214

== ENCOUNTER 2023-09-04 10:39 | Outpatient (AMB) | payer OTHER, SELFPAY ==
[2023-09-04 10:40] VITALS: BP 132/76; PULSE 64; O2SAT 98; BMI 33.3
--- NOTE | 2023-09-04 10:40 | A.OFFPC_ITS ---
Vital Signs 09/04/23 10:40 Height 5 ft 6 in Weight 206 lb 4 oz BMI 33.3 BP 132/76 Blood Pressure Location Rt brachial Position Sitting Pulse 64 Pulse Source Pulse Oximeter Pulse Oximetry (%) 98 Oxygen Delivery Method Room Air Intake Visit Reasons: Back pain going towards leg numbness in legs Allergies N.K.D.A. Allergy (Mild, Uncoded 08/25/22 12:21) none Medication List - Last Reconciled 09/04/23 by Poonam Palomares MD amlodipine 5 mg PO DAILY atenolol-chlorthalidone 100-25 mg 1 tab PO DAILY cetirizine (Zyrtec) 10 mg PO DAILY PRN 90 days fluticasone propionate 50 mcg/actuation (Flonase Allergy Relief) 1 spray intranasal BID 30 days Tobacco use date assessed: 09/04/23 Fall risk assessment: No Falls in past year Last assessed Fall Risk: 09/04/23 Dental Screening Dental Screen Date: 09/04/23 Did you have a dental visit in the last 12 months?: Yes Did you have a dental problem in the last 6 months where you did not have access to dental care?: No Was dental information given to patient?: Patient has dentist HPI Back pain going towards leg numbness in legs HPI Details 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 He has started having pain left lower back radiating to hip and coming down to his thigh anteriorly Patient says that it feels pins and needle over his thigh There is no bowel or bladder problem On examination his straight leg sign is almost negative only slightly positive with full flexion of leg Range of motion back is intact I have ordered x-ray of his lumbar spine Patient is to start meloxicam 7.5 mg with breakfast along with prednisone 20 mg once a day for 5 days He is to return in 2 weeks for follow-up [facility] Social History Housing: House Alcohol intake: current Alcohol intake frequency: a few times a month Patient Tobacco Use Status: Never used Tobacco e-Cigarette/Vaping Use: Never Used service: No Current occupational status: employed 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 How often do you have a drink containing alcohol?: Monthly or less 2. How many drinks containing alcohol do you have on a typical day when you are drinking?: 1 or 2 3. How often do you have six or more drinks on one occasion?: Never Total Score: 1 Score Reviewed/Action Taken: Yes JONN-7 AMB Questionnaire JONN-7 Date JONN - 7 assessed: 09/23/21 Source: Developed by Drs. Robert Anglin, Pascale Blankenship, Glenn Blue and colleagues, with an educational ehsan from [employer]. Review of Systems Const Denies chills and Denies fever(s) ENT Denies epistaxis and Denies nasal discharge Card Denies chest pain Resp Denies chest congestion, Denies cough and Denies hemoptysis GI Denies diarrhea and Denies nausea Skin/Breast Denies rash Neuro Reports no additional complaints Psych Reports no additional complaints Endo Reports no additional complaints Physical exam (Primary Care) Vital Signs: Last Vital Signs Pulse 64 09/04/23 10:40 BP 132/76 09/04/23 10:40 Pulse Ox 98 09/04/23 10:40 Oxygen Delivery Method Room Air 09/04/23 10:40 BMI result Body Mass Index 33.3 Tobacco/Smoking Status: Tobacco use Status Tobacco use date assessed 09/04/23 09/04/23 10:42 Patient Tobacco Use Status Never used Tobacco 09/04/23 10:42 e-Cigarette/Vaping Use Never Used 09/04/23 10:42 Thrive Assessment: Date of Thrive Assessment Date Thrive assessed 09/23/21 09/04/23 10:42 Const General: cooperative, comfortable and no acute distress Orientation/consciousness: patient oriented x3 HENMT Head: Yes normocephalic Eyes General: appearance normal, both eyes and all related structures Neck Neck: Yes supple Resp Effort & Inspection: normal respiratory effort, no cough and no stridor Cardio Rhythm: regular rhythm Heart sounds: S1 normal heart sound present and S2 normal heart sound present Skin General skin exam: turgor normal Neuro Other: Straight leg sign left side slightly positive, range of motion back intact no pain with lumbar spine percussion General: patient oriented x3, tone normal and moves all extremities Extrem Right lower extremity: no edema Left lower extremity: no edema Assessment and Plan Assessment & Plan (1) Left lumbar radiculitis: Code(s): M54.16 - Radiculopathy, lumbar region Plan 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 He has started having pain left lower back radiating to hip and coming down to his thigh anteriorly Patient says that it feels pins and needle over his thigh There is no bowel or bladder problem On examination his straight leg sign is almost negative only slightly positive with full flexion of leg Range of motion back is intact I have ordered x-ray of his lumbar spine Patient is to start meloxicam 7.5 mg with breakfast along with prednisone 20 mg once a day for 5 days He is to return in 2 weeks for follow-up Orders: Orders XR lumbar spine 2-3V Today M54.16 - Radiculopathy, lumbar region Medications: New prednisone 20 mg PO DAILY 5 tabs 0RF 5 days Refilled meloxicam 7.5 mg PO DAILY 90 tabs 0RF 90 days M25.551 - Pain in right hip Coding Level of Care Code Est Pt Level 3 (07147) Diagnoses Left lumbar radiculitis M54.16
== END 2023-09-04 11:23 | disposition home or self-care (01) ==
PROVIDERS: PCP Internal Medicine; Visit Provider Internal Medicine
DX: M54.16 Radiculopathy, lumbar region (principal)
CPT/HCPCS: 99213

== ENCOUNTER 2023-09-08 07:01 | Outpatient (REF) | payer OTHER, SELFPAY ==
--- NOTE | ~2023-09-08 | XR_ITS ---
EXAMINATION: XR LUMBOSACRAL SPINE CLINICAL INFORMATION: Low back pain COMPARISON: None available. TECHNIQUE: Three views of the lumbosacral spine. FINDINGS: Mild curvature of the lumbar spine to the left. Bone alignment is otherwise normal. No fracture or dislocation. Multilevel degenerative spondylosis and degenerative disc disease. Lower lumbar spine facet arthritis. XR/XR lumbar spine 2-3V IMPRESSION: Multilevel degenerative changes and mild scoliosis.
== END 2023-09-08 07:02 | disposition home or self-care (01) ==
LOC: HO.XRAY 07:01
PROVIDERS: PCP Internal Medicine; Visit Provider Internal Medicine
DX: M54.16 Radiculopathy, lumbar region (principal)
CPT/HCPCS: 72100

== ENCOUNTER 2023-09-18 10:42 | Outpatient (AMB) | payer OTHER, SELFPAY ==
[2023-09-18 10:56] VITALS: BP 130/80; PULSE 67; O2SAT 95; BMI 33.3
--- NOTE | 2023-09-18 10:56 | A.OFFPC_ITS ---
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 Allergy (Mild, Uncoded 09/18/23 10:58) none Medication List - Last Reconciled 09/18/23 by Poonam Palomares MD amlodipine 5 mg PO DAILY atenolol-chlorthalidone 100-25 mg 1 tab PO DAILY cetirizine (Zyrtec) 10 mg PO DAILY PRN 90 days fluticasone propionate 50 mcg/actuation (Flonase Allergy Relief) 1 spray intranasal BID 30 days Tobacco use date assessed: 09/18/23 Fall risk assessment: No Falls in past year Last assessed Fall Risk: 09/18/23 Dental Screening Dental Screen Date: 09/04/23 HPI 2 week follow up HPI0 Details Patient is 62-year-old gentleman, this is his regular three-month follow-up appointment Patient is doing well Blood pressure is well-controlled Patient is taking atenolol chlorthalidone 100-25 mg And amlodipine 5 mg car tolerating medications no side effects Patient has osteoarthritis multiple joints taking meloxicam 7.5 mg as needed with food which is helping him He had a back pain recently which responded to meloxicam and prednisone Allergies are stable BMI is still elevated patient is trying to lose more weight Liver enzymes slightly elevated but stable Forgot to do labs, patient says that he will do that this coming weekend Has appointment end of December for physical exam [facility] Social History Housing: House Alcohol intake: current Alcohol intake frequency: a few times a month Patient Tobacco Use Status: Never used Tobacco e-Cigarette/Vaping Use: Never Used service: No Current occupational status: employed 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 1. Little interest or pleasure in doing things: not at all 2. Feeling down, depressed, or hopeless: not at all 3. Trouble falling or staying asleep, or sleeping too much: not at all 4. Feeling tired or having little energy: not at all 5. Poor appetite or overeating: not at all 6. Feeling bad about yourself - or that you are a failure or have let yourself or your family down: not at all 7. Trouble concentrating on things, such as reading the newspaper or watching television: not at all 8. Moving or speaking so slowly that other people could have noticed. Or the opposite - being so fidgety or restless that you have been moving around a lot more than usual: not at all 9. Thoughts that you would be better off or of hurting yourself in some way: not at all Total score: 0 Depression Screening Interpretation: Negative Depression Screening Done: Yes 10759 - PHQ-9 Billing: Yes Source: Developed by Drs. Robert Anglin, Pascale Blankenship, Glenn Blue and colleagues, with an educational ehsan from [employer]. Thrive Questionnaire Date Thrive assessed: 09/18/23 I am a: Patient What is your living situation today?: I have a steady place to live Within the past 12 months, did the food you bought not last and you didn't have the money to get more?: Never true Within the past 12 months, did you worry whether your food would run out before you got money to buy more?: Never true Do you have trouble paying for medicines?: No Do you have trouble getting transportation to medical appointments?: No Do you have trouble paying your heating and electricity bill?: No Do you have trouble taking care of your child, family member or friend?: No Do you have trouble with day-to-day activities such as bathing, preparing meals, shopping, managing finances, etc.?: No Are you currently unemployed and looking for a job?: No Are you interested in more education?: No Please select the resources that you would like help with: None Currently or been in a relationship where the following occur: no concerns reported THRIVE Score: 0 JONN-7 AMB Questionnaire JONN-7 Date JONN - 7 assessed: 09/18/23 Feeling nervous, anxious, or on edge: 0 = Not at all Not being able to stop or control worryin = Not at all Worrying too much about different things: 0 = Not at all Trouble relaxin = Not at all Being so restless that it is hard to sit still: 0 = Not at all Becoming easily annoyed or irritable: 0 = Not at all Feeling afraid as if something awful might happen: 0 = Not at all Total JONN-7 score (0-4 normal; 5-9 mild; 10-14 moderate; 15-21 severe): 0 Source: Developed by Drs. Robert Anglin, Pascale Blankenship, Glenn Blue and colleagues, with an educational ehsan from [employer]. JONN-7 Assessment Billing JONN-7 Assessment Tool: JONN-7 Assessment 60486 Review of Systems Const Denies chills and Denies fever(s) ENT Denies epistaxis and Denies nasal discharge Card Denies chest pain Resp Denies chest congestion, Denies cough and Denies hemoptysis GI Denies diarrhea and Denies nausea Skin/Breast Denies rash Neuro Reports no additional complaints Psych Reports no additional complaints Endo Reports no additional complaints Physical exam (Primary Care) Vital Signs: Last Vital Signs Pulse 67 09/18/23 10:56 BP 130/80 09/18/23 10:56 Pulse Ox 95 09/18/23 10:56 BMI result Body Mass Index 33.3 Tobacco/Smoking Status: Tobacco use Status Tobacco use date assessed 09/18/23 09/18/23 11:00 Patient Tobacco Use Status Never used Tobacco 09/18/23 11:00 e-Cigarette/Vaping Use Never Used 09/18/23 11:00 PHQ-9: PHQ-9 Score PHQ-9: Total score 0 09/18/23 11:15 Depression Screening Interpretation: Negative Thrive Assessment: Date of Thrive Assessment Date Thrive assessed 09/18/23 09/18/23 11:00 Currently or been in a relationship where the following occur: no concerns reported Const General: cooperative, comfortable and no acute distress Orientation/consciousness: patient oriented x3 HENMT Head: Yes normocephalic Eyes General: appearance normal, both eyes and all related structures Neck Neck: Yes supple Resp Effort & Inspection: normal respiratory effort, no cough and no stridor Cardio Rhythm: regular rhythm Heart sounds: S1 normal heart sound present and S2 normal heart sound present Skin General skin exam: turgor normal Neuro General: patient oriented x3, tone normal and moves all extremities Extrem Right lower extremity: no edema Left lower extremity: no edema Assessment and Plan Assessment & Plan (1) Hypertension, essential: Code(s): I10 - Essential (primary) hypertension (2) Impaired fasting blood sugar: Code(s): R73.01 - Impaired fasting glucose (3) LFT elevation: Code(s): R79.89 - Other specified abnormal findings of blood chemistry (4) Osteoarthritis of both knees: Code(s): M17.0 - Bilateral primary osteoarthritis of knee Qualifiers: Osteoarthritis type: primary Qualified Code(s): M17.0 - Bilateral primary osteoarthritis of knee (5) Obesity due to excess calories: Code(s): E66.09 - Other obesity due to excess calories Qualifiers: Body mass index: BMI 33.0-33.9 Obesity classification: adult class 1 (BMI 30 - 34.9) Serious obesity comorbidity presence: with serious comorbidity Qualified Code(s): E66.09 - Other obesity due to excess calories; Z68.33 - Body mass index [BMI] 33.0-33.9, adult (6) Bacterial arthritis of hip: Code(s): M00.859 - Arthritis due to other bacteria, unspecified hip Plan Patient is 62-year-old gentleman, this is his regular three-month follow-up appointment Patient is doing well Blood pressure is well-controlled Patient is taking atenolol chlorthalidone 100-25 mg And amlodipine 5 mg car tolerating medications no side effects Patient has osteoarthritis multiple joints taking meloxicam 7.5 mg as needed with food which is helping him He had a back pain recently which responded to meloxicam and prednisone Allergies are stable BMI is still elevated patient is trying to lose more weight Liver enzymes slightly elevated but stable Forgot to do labs, patient says that he will do that this coming weekend Has appointment end of December for physical exam Medications: Refilled meloxicam 7.5 mg PO DAILY 90 tabs 0RF 90 days M25.551 - Pain in right hip Coding Level of Care Code Est Pt Level 4 (98098) Diagnoses Hypertension, essential I10 Impaired fasting blood sugar R73.01 LFT elevation R79.89 Primary osteoarthritis of both knees M17.0 Osteoarthritis type: primary Class 1 obesity due to excess calories with serious comorbidity and body mass index (BMI) of 33.0 to 33.9 in adult E66.09; Z68.33 Body mass index: BMI 33.0-33.9 Obesity classification: adult class 1 (BMI 30 - 34.9) Serious obesity comorbidity presence: with serious comorbidity 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 Additional Codes JONN-7 Assessment Billing - JONN-7 Assessment Tool: JONN-7 Assessment [id number] ([id number])
== END 2023-09-18 12:38 | disposition home or self-care (01) ==
PROVIDERS: PCP Internal Medicine; Visit Provider Internal Medicine
DX: I10 Essential (primary) hypertension (principal); R73.01 Impaired fasting glucose; M17.0 Bilateral primary osteoarthritis of knee; R79.89 Other specified abnormal findings of blood chemistry; Z68.33 Body mass index [BMI] 33.0-33.9, adult; E66.09 Other obesity due to excess calories
CPT/HCPCS: 99214

== ENCOUNTER 2023-09-21 06:01 | Outpatient (REF) | payer OTHER, SELFPAY ==
[2023-09-21 06:16] LABS: MANUAL DIFF FLAG NO
[2023-09-21 07:57] LABS: Basophils Percent Auto 0.3 % (0-2); Eosinophils Absolute Auto 0.9 X10*3/uL (0.0-0.4); Eosinophils Percent Auto 9.7 % (0-4); Hematocrit 43.8 % (42.0-52.0); Hemoglobin 15.2 g/dl (14.0-18.0); Imm Gran Abs Auto 0.03 X10*3/uL (0.00-0.03); Imm Gran Pct Auto 0.3 % (0.0-0.4); Lymphocytes Absolute Auto 2.7 X10*3/uL (1.2-4.9); Lymphocytes Percent Auto 30.8 % (20-40); Mean Corpuscular HGB Conc 34.7 g/dl (31.0-36.0); Mean Corpuscular Hemoglobin 31.6 pg (27.0-33.0); Mean Corpuscular Volume 91.1 fL (80.0-98.0); Mean Platelet Volume 10.4 fL (9.4-12.4); Monocytes Absolute Auto 0.7 X10*3/uL (0.1-1.2); Neutrophils Absolute Auto 4.5 x10*3/uL (2.0-8.3); Neutrophils Percent Auto 50.9 % (45-73); Platelet Count 258 X10*3/uL (160-400); Red Blood Count 4.81 X10*6/uL (4.60-5.80); Red Cell Distribution Width 13.2 % (11.0-16.0); White Blood Count 8.8 X10*3/uL (4.8-10.8)
[2023-09-21 08:04] LABS: Estimated Average Glucose 114 mg/dL; Hemoglobin A1c % 5.6 % (<6.0)
[2023-09-21 08:30] LABS: Alanine Aminotransferase 64 U/L (0-40); Albumin Level 4.2 g/dL (3.5-5.0); Alkaline Phosphatase 81 U/L (39-117); Anion Gap 13 (12-20); Aspartate Amino Transferase 43 U/L (5-37); Bilirubin Total 0.9 mg/dL (0.0-1.0); Blood Urea Nitrogen 16 mg/dL (9-16); Calcium 9.5 mg/dL (8.4-10.2); Carbon Dioxide 26 mmol/L (22-29); Chloride 104 mmol/L (96-108); Cholesterol 195 mg/dL (<200); Estimated Glomerular Filt Rate > 60; Glucose Fasting 120 mg/dL (60-99); Glucose Random 119 mg/dL (60-115); HDL Cholesterol 54 mg/dL (>40); LDL Cholesterol Calculated 128 mg/dL (<100); Potassium 3.2 mmol/L (3.3-5.1); Sodium 140 mmol/L (135-145); Total Protein 7.9 g/dL (6.5-8.0); Triglycerides 65 mg/dL (<150)
== END 2023-09-21 06:02 | disposition home or self-care (01) ==
LOC: HO.LAB 06:01
PROVIDERS: PCP Internal Medicine; Visit Provider Internal Medicine
DX: Z00.01 Encounter for general adult medical examination with abnormal findings (principal); R73.01 Impaired fasting glucose; R79.89 Other specified abnormal findings of blood chemistry; E66.09 Other obesity due to excess calories; M25.551 Pain in right hip; J30.9 Allergic rhinitis, unspecified; I10 Essential (primary) hypertension
CPT/HCPCS: 36415; 80053; 80061; 83036; 85025

== ENCOUNTER 2023-12-26 08:59 | Outpatient (AMB) | payer OTHER, SELFPAY ==
--- NOTE | 2023-12-26 09:09 | MHC.PC.OV ---
Vital Signs 12/26/23 09:10 Height 5 ft 6 in Weight 202 lb 6 oz BMI 32.7 BP 144/88 H Blood Pressure Location Rt brachial Position Sitting Pulse 64 Pulse Source Pulse Oximeter Pulse Oximetry (%) 96 Oxygen Delivery Method Room Air Intake Visit Reasons: PE Allergies N.K.D.A. Allergy (Mild, Uncoded 09/18/23 10:58) none Medication List - Last Reconciled 12/26/23 by Poonam Palomares MD amlodipine 5 mg PO DAILY atenolol-chlorthalidone 100-25 mg 1 tab PO DAILY cetirizine (Zyrtec) 10 mg PO DAILY PRN 90 days fluticasone propionate 50 mcg/actuation (Flonase Allergy Relief) 1 spray intranasal BID 30 days meloxicam 7.5 mg PO DAILY 90 days Tobacco use date assessed: 12/26/23 Fall risk assessment: No Falls in past year Last assessed Fall Risk: 12/26/23 Dental Screening Dental Screen Date: 12/26/23 Did you have a dental visit in the last 12 months?: No Did you have a dental problem in the last 6 months where you did not have access to dental care?: No Was dental information given to patient?: Patient has dentist HPI PE HPI Details Physical exam appointment Blood pressure is slightly elevated, patient is taking atenolol chlorthalidone 50-25 , tolerating medication Other medications are omeprazole 40 mg for chronic GERD Meloxicam for bilateral hip osteoarthritis, he is doing well now his left hip is no longer painful I have told him to take meloxicam only as needed now with food Flonase nasal spray for allergic rhinitis On examination today patient have limited range of motion of right shoulder patient says that he had a tendinitis surgery 5 years ago and since then he has discomfort so he preferred not to raise all the way up . 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 1. Little interest or pleasure in doing things: not at all 2. Feeling down, depressed, or hopeless: not at all 3. Trouble falling or staying asleep, or sleeping too much: not at all 4. Feeling tired or having little energy: not at all 5. Poor appetite or overeating: not at all 6. Feeling bad about yourself - or that you are a failure or have let yourself or your family down: not at all 7. Trouble concentrating on things, such as reading the newspaper or watching television: not at all 8. Moving or speaking so slowly that other people could have noticed. Or the opposite - being so fidgety or restless that you have been moving around a lot more than usual: not at all 9. Thoughts that you would be better off or of hurting yourself in some way: not at all Total score: 0 Depression Screening Interpretation: Negative Depression Screening Done: Yes 57207 - PHQ-9 Billing: Yes Source: Developed by Drs. Robert Anglin, Pascale Blankenship, Glenn Blue and colleagues, with an educational ehsan from [employer]. Thrive Questionnaire Date Thrive assessed: 12/26/23 I am a: Patient What is your living situation today?: I have a steady place to live Within the past 12 months, did the food you bought not last and you didn't have the money to get more?: Never true Within the past 12 months, did you worry whether your food would run out before you got money to buy more?: Never true Do you have trouble paying for medicines?: No Do you have trouble getting transportation to medical appointments?: No Do you have trouble paying your heating and electricity bill?: No Do you have trouble taking care of your child, family member or friend?: No Do you have trouble with day-to-day activities such as bathing, preparing meals, shopping, managing finances, etc.?: No Are you currently unemployed and looking for a job?: No Are you interested in more education?: No Please select the resources that you would like help with: None Currently or been in a relationship where the following occur: No concerns reported THRIVE Score: 0 AUDIT C Alcohol Use Questionnaire (AUDIT-C) 1. How often do you have a drink containing alcohol?: Monthly or less 2. How many drinks containing alcohol do you have on a typical day when you are drinking?: 1 or 2 3. How often do you have six or more drinks on one occasion?: Never Total Score: 1 Score Reviewed/Action Taken: Yes JONN-7 AMB Questionnaire JONN-7 Date JONN - 7 assessed: 12/26/23 Feeling nervous, anxious, or on edge: 0 = Not at all Not being able to stop or control worryin = Not at all Worrying too much about different things: 0 = Not at all Trouble relaxin = Not at all Being so restless that it is hard to sit still: 0 = Not at all Becoming easily annoyed or irritable: 0 = Not at all Feeling afraid as if something awful might happen: 0 = Not at all Total JONN-7 score (0-4 normal; 5-9 mild; 10-14 moderate; 15-21 severe): 0 Source: Developed by Drs. Robert Anglin, Pascale Blankenship, Glenn Blue and colleagues, with an educational ehsan from [employer]. JONN-7 Assessment Billing JONN-7 Assessment Tool: JONN-7 Assessment 88344 Review of Systems Const Denies chills, Denies fever(s) and Denies headache(s) Eyes Denies blurry vision ENT Denies headache(s), Denies nasal discharge, Denies nasal obstruction, Denies odynophagia and Denies sinus pain Card Denies chest pain at rest and Denies chest pain with activity Resp Denies cough and Denies hemoptysis GI Denies diarrhea, Denies odynophagia, Denies vomiting and Denies hematemesis Reports as per HPI Musc Denies abnormal gait Skin/Breast Reports as per HPI Neuro Denies Neuro-related abnormal movements, Denies Abnormal speech present, Denies abnormal gait, Denies headache(s) and Denies Sensory deficit (Neuro) Psych Denies mood swings and Denies paranoia Endo Reports as per HPI Bashir/Lymph Reports as per HPI Aller/Immun Reports as per HPI Physical exam (Primary Care) Vital Signs: Last Vital Signs Pulse 64 12/26/23 09:10 BP 144/88 H 12/26/23 09:10 Pulse Ox 96 12/26/23 09:10 Oxygen Delivery Method Room Air 12/26/23 09:10 BMI result Body Mass Index 32.7 Tobacco/Smoking Status: Tobacco use Status Tobacco use date assessed 12/26/23 12/26/23 09:13 Patient Tobacco Use Status Never used Tobacco 12/26/23 09:13 e-Cigarette/Vaping Use Never Used 12/26/23 09:13 PHQ-9: PHQ-9 Score PHQ-9: Total score 0 12/26/23 10:14 Depression Screening Interpretation: Negative Thrive Assessment: Date of Thrive Assessment Date Thrive assessed 12/26/23 12/26/23 09:13 Currently or been in a relationship where the following occur: No concerns reported Const General: cooperative, comfortable and no acute distress Orientation/consciousness: patient oriented x3 HENMT Head: Yes normocephalic and Yes atraumatic Eyes General: appearance normal, both eyes and all related structures Pupils: Equal, round and reactive pupils present EOM: EOMs intact bilaterally Neck Neck: Yes supple and No lymphadenopathy Thyroid: Thyroid normal Lymphatic: no lymphadenopathy noted Resp Effort & Inspection: normal respiratory effort and able to speak in complete sentences Auscultation: clear to auscultation bilaterally Cardio Heart sounds: S1 normal heart sound present and S2 normal heart sound present GI Palpation (GI): Soft to palpation and nontender Auscultation: normal bowel sounds General: Yes no CVA tenderness Back/Spine/Pelvis Back: no CVA tenderness Skin General skin exam: elasticity normal and turgor normal Neuro General: patient oriented x3 and gait normal Cranial nerves: Yes Equal, round and reactive pupils present Speech: No Abnormal speech present Sensory Exam: No Sensory deficit (Neuro) Coordination: tandem gait normal and Romberg test negative Extrem General: Yes normal exam except as noted and No edema Assessment and Plan Assessment & Plan (1) Encounter for general adult medical examination with abnormal findings: Code(s): Z00.01 - Encounter for general adult medical examination with abnormal findings (2) Impaired fasting blood sugar: Code(s): R73.01 - Impaired fasting glucose (3) Obesity due to excess calories: Code(s): E66.09 - Other obesity due to excess calories Qualifiers: Body mass index: BMI 34.0-34.9 Obesity classification: adult class 1 (BMI 30 - 34.9) Serious obesity comorbidity presence: with serious comorbidity Qualified Code(s): E66.09 - Other obesity due to excess calories; Z68.34 - Body mass index [BMI] 34.0-34.9, adult (4) Hypertension, essential: Code(s): I10 - Essential (primary) hypertension (5) Osteoarthritis of both knees: Code(s): M17.0 - Bilateral primary osteoarthritis of knee Qualifiers: Osteoarthritis type: primary Qualified Code(s): M17.0 - Bilateral primary osteoarthritis of knee (6) LFT elevation: Code(s): R79.89 - Other specified abnormal findings of blood chemistry Plan Physical exam appointment Blood pressure is slightly elevated, patient is taking atenolol chlorthalidone 50-25 , tolerating medication Other medications are omeprazole 40 mg for chronic GERD Meloxicam for bilateral hip osteoarthritis, he is doing well now his left hip is no longer painful I have told him to take meloxicam only as needed now with food Flonase nasal spray for allergic rhinitis On examination today patient have limited range of motion of right shoulder patient says that he had a tendinitis surgery 5 years ago and since then he has discomfort so he preferred not to raise all the way up . Lab order placed to be done next month Colonoscopy will be due in 2026 LFTs slightly elevated but stable BMI is elevated need to lose weight Orders: Orders Complete Blood Count Auto Diff Today E66.09 - Other obesity due to excess calories, I10 - Essential (primary) hypertension, M17.0 - Bilateral primary osteoarthritis of knee, R73.01 - Impaired fasting glucose, R79.89 - Other specified abnormal findings of blood chemistry, Z00.01 - Encounter for general adult medical examination with abnormal findings, Z68.34 - Body mass index [BMI] 34.0-34.9, adult Comprehensive [place]. Panel Fast Today E66.09 - Other obesity due to excess calories, I10 - Essential (primary) hypertension, M17.0 - Bilateral primary osteoarthritis of knee, R73.01 - Impaired fasting glucose, R79.89 - Other specified abnormal findings of blood chemistry, Z00.01 - Encounter for general adult medical examination with abnormal findings, Z68.34 - Body mass index [BMI] 34.0-34.9, adult Hemoglobin A1c Today E66.09 - Other obesity due to excess calories, I10 - Essential (primary) hypertension, M17.0 - Bilateral primary osteoarthritis of knee, R73.01 - Impaired fasting glucose, R79.89 - Other specified abnormal findings of blood chemistry, Z00.01 - Encounter for general adult medical examination with abnormal findings, Z68.34 - Body mass index [BMI] 34.0-34.9, adult Lipid Panel Today E66.09 - Other obesity due to excess calories, I10 - Essential (primary) hypertension, M17.0 - Bilateral primary osteoarthritis of knee, R73.01 - Impaired fasting glucose, R79.89 - Other specified abnormal findings of blood chemistry, Z00.01 - Encounter for general adult medical examination with abnormal findings, Z68.34 - Body mass index [BMI] 34.0-34.9, adult Coding Level of Care Code Est Pt Level 3 (99086) Est Pt Prev Care 40-64y(85109) Diagnoses Encounter for general adult medical examination with abnormal findings Z00.01 Impaired fasting blood sugar R73.01 Class 1 obesity due to excess calories with serious comorbidity and body mass index (BMI) of 34.0 to 34.9 in adult E66.09; Z68.34 Body mass index: BMI 34.0-34.9 Obesity classification: adult class 1 (BMI 30 - 34.9) Serious obesity comorbidity presence: with serious comorbidity Hypertension, essential I10 Primary osteoarthritis of both knees M17.0 Osteoarthritis type: primary LFT elevation R79.89 Additional Codes JONN-7 Assessment Billing - JONN-7 Assessment Tool: JONN-7 Assessment [id number] ([id number])
[2023-12-26 09:10] VITALS: BP 144/88; PULSE 64; O2SAT 96; BMI 32.7
== END 2023-12-26 09:28 | disposition home or self-care (01) ==
PROVIDERS: PCP Internal Medicine; Visit Provider Internal Medicine
DX: Z00.00 Encounter for general adult medical examination without abnormal findings (principal); R73.01 Impaired fasting glucose; E66.09 Other obesity due to excess calories; Z68.34 Body mass index [BMI] 34.0-34.9, adult; I10 Essential (primary) hypertension; M17.0 Bilateral primary osteoarthritis of knee
CPT/HCPCS: 99396

== ENCOUNTER 2024-04-08 09:52 | Outpatient (AMB) | payer MEDICARE, SELFPAY ==
[2024-04-08 09:54] VITALS: BP 130/72; PULSE 64; O2SAT 96; BMI 33.6
--- NOTE | 2024-04-08 09:54 | A.OFFPC_ITS ---
Vital Signs 04/08/24 09:54 Height 5 ft 6 in Weight 208 lb 2 oz BMI 33.6 BP 130/72 Blood Pressure Location Lt brachial Position Sitting Pulse 64 Pulse Source Pulse Oximeter Pulse Oximetry (%) 96 Oxygen Delivery Method Room Air Intake Visit Reasons: 4M F/U Allergies N.K.D.A. Allergy (Mild, Uncoded 09/18/23 10:58) none Medication List - Last Reconciled 04/08/24 by Poonam Palomares MD amlodipine 5 mg PO DAILY atenolol-chlorthalidone 100-25 mg 1 tab PO DAILY cetirizine (Zyrtec) 10 mg PO DAILY PRN 90 days fluticasone propionate 50 mcg/actuation (Flonase Allergy Relief) 1 spray intranasal BID 30 days meloxicam 7.5 mg PO DAILY 90 days Tobacco use date assessed: 04/08/24 Fall risk assessment: No Falls in past year Last assessed Fall Risk: 04/08/24 Dental Screening Dental Screen Date: 04/08/24 Did you have a dental visit in the last 12 months?: Yes Did you have a dental problem in the last 6 months where you did not have access to dental care?: No Was dental information given to patient?: Patient has dentist HPI 4M F/U HPI Details Patient is 63-year-old gentleman, this is his regular follow-up appointment Patient is doing well Blood pressure is well-controlled Patient is taking atenolol chlorthalidone 100-25 mg And amlodipine 5 mg , tolerating medications no side effects Patient has osteoarthritis multiple joints , he was taking meloxicam but he has stopped Now taking Tylenol only as needed Allergies are stable BMI is still elevated patient is trying to lose more weight Liver enzymes slightly elevated but stable Reminded to do labs again. 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 1. Little interest or pleasure in doing things: not at all 2. Feeling down, depressed, or hopeless: not at all 3. Trouble falling or staying asleep, or sleeping too much: not at all 4. Feeling tired or having little energy: not at all 5. Poor appetite or overeating: not at all 6. Feeling bad about yourself - or that you are a failure or have let yourself or your family down: not at all 7. Trouble concentrating on things, such as reading the newspaper or watching television: not at all 8. Moving or speaking so slowly that other people could have noticed. Or the opposite - being so fidgety or restless that you have been moving around a lot more than usual: not at all 9. Thoughts that you would be better off or of hurting yourself in some way: not at all Total score: 0 Depression Screening Interpretation: Negative Depression Screening Done: Yes 66672 - PHQ-9 Billing: Yes Source: Developed by Drs. Robert Anglin, Pascale Blankenship, Glenn Blue and colleagues, with an educational ehsan from [employer]. Thrive Questionnaire Date Thrive assessed: 04/08/24 I am a: Patient What is your living situation today?: I have a steady place to live Within the past 12 months, did the food you bought not last and you didn't have the money to get more?: Often true Within the past 12 months, did you worry whether your food would run out before you got money to buy more?: Often true Do you have trouble paying for medicines?: No Do you have trouble getting transportation to medical appointments?: No Do you have trouble paying your heating and electricity bill?: No Do you have trouble taking care of your child, family member or friend?: No Do you have trouble with day-to-day activities such as bathing, preparing meals, shopping, managing finances, etc.?: No Are you currently unemployed and looking for a job?: No Are you interested in more education?: No Please select the resources that you would like help with: None Currently or been in a relationship where the following occur: I choose not to answer THRIVE Score: 2 AUDIT C Alcohol Use Questionnaire (AUDIT-C) 1. How often do you have a drink containing alcohol?: Never 3. How often do you have six or more drinks on one occasion?: Never Total Score: 0 Score Reviewed/Action Taken: Yes JONN-7 AMB Questionnaire JONN-7 Date JONN - 7 assessed: 04/08/24 Feeling nervous, anxious, or on edge: 0 = Not at all Not being able to stop or control worryin = Not at all Worrying too much about different things: 0 = Not at all Trouble relaxin = Not at all Being so restless that it is hard to sit still: 0 = Not at all Becoming easily annoyed or irritable: 0 = Not at all Feeling afraid as if something awful might happen: 0 = Not at all Total JONN-7 score (0-4 normal; 5-9 mild; 10-14 moderate; 15-21 severe): 0 Source: Developed by Drs. Robert Anglin, Pascale Blankenship, Glenn Blue and colleagues, with an educational ehsan from [employer]. JONN-7 Assessment Billing JONN-7 Assessment Tool: JONN-7 Assessment 36745 Review of Systems Const Denies chills and Denies fever(s) ENT Denies epistaxis and Denies nasal discharge Card Denies chest pain Resp Denies chest congestion, Denies cough and Denies hemoptysis GI Denies diarrhea and Denies nausea Skin/Breast Denies rash Neuro Reports no additional complaints Psych Reports no additional complaints Endo Reports no additional complaints Physical exam (Primary Care) Vital Signs: Last Vital Signs Pulse 64 04/08/24 09:54 BP 130/72 04/08/24 09:54 Pulse Ox 96 04/08/24 09:54 Oxygen Delivery Method Room Air 04/08/24 09:54 BMI result Body Mass Index 33.6 Tobacco/Smoking Status: Tobacco use Status Tobacco use date assessed 04/08/24 04/08/24 10:00 Patient Tobacco Use Status Never used Tobacco 04/08/24 10:00 e-Cigarette/Vaping Use Never Used 04/08/24 10:00 PHQ-9: PHQ-9 Score PHQ-9: Total score 0 04/08/24 10:52 Depression Screening Interpretation: Negative Thrive Assessment: Date of Thrive Assessment Date Thrive assessed 04/08/24 04/08/24 10:00 Currently or been in a relationship where the following occur: I choose not to answer Const General: cooperative, comfortable and no acute distress Orientation/consciousness: patient oriented x3 HENMT Head: Yes normocephalic Eyes General: appearance normal, both eyes and all related structures Neck Neck: Yes supple Resp Effort & Inspection: normal respiratory effort, no cough and no stridor Cardio Rhythm: regular rhythm Heart sounds: S1 normal heart sound present and S2 normal heart sound present Skin General skin exam: turgor normal Neuro General: patient oriented x3, tone normal and moves all extremities Extrem Right lower extremity: no edema Left lower extremity: no edema Office Procedures Flu Questionnaire Does the patient have a severe egg allergy?: No Does the patient have severe life threatening allergies?: No Does the patient have a fever or illness today?: No Has the patient ever had Guillain-Turlock Syndrome?: No Has the patient ever had any past reaction to a flu shot?: No Immunizations Fluarix Triv 6815-0935 (PF) 45 mcg (15 mcg x 3)/0.5 mL IM syringe Performing Provider: Poonam Palomares MD [place] [facility] Administered by: Edgar Munroe CMA on 04/08/24 10:18 Dose Route Admin Location Dispensed Lot Number Expiration Date [facility] [employer] 0.5 mL IM Right Deltoid 0.5 mL [id number] 12/01/24 [id number] Accion VIS Given Date VIS Provided VIS Publication Date 04/08/24 Single Vaccine 21 Eligibility Eligibility Date Funding Source Not [facility] Eligible 04/08/24 Private Coding Level of Care Code Est Pt Level 4 (12402) Complex EM visit Add On G2211 Diagnoses Hypertension, essential I10 Class 1 obesity due to excess calories with serious comorbidity and body mass index (BMI) of 34.0 to 34.9 in adult E66.09; Z68.34 Obesity classification: adult class 1 (BMI 30 - 34.9) Serious obesity comorbidity presence: with serious comorbidity Body mass index: BMI 34.0-34.9 Impaired fasting blood sugar R73.01 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 Allergic rhinitis due to other allergic trigger, unspecified seasonality J30.89 Allergic rhinitis trigger: other Allergic rhinitis seasonality: unspecified Primary osteoarthritis of both knees M17.0 Osteoarthritis type: primary LFT elevation R79.89 Additional Codes JONN-7 Assessment Billing - JONN-7 Assessment Tool: JONN-7 Assessment 12132 ([id number]) Assessment & Plan Assessment & Plan (1) Hypertension, essential: Code(s): I10 - Essential (primary) hypertension Category: Medical (2) Obesity due to excess calories: Code(s): E66.09 - Other obesity due to excess calories Category: Medical Qualifiers: Obesity classification: adult class 1 (BMI 30 - 34.9) Serious obesity comorbidity presence: with serious comorbidity Body mass index: BMI 34.0-34.9 Qualified Code(s): E66.09 - Other obesity due to excess calories; Z68.34 - Body mass index [BMI] 34.0-34.9, adult (3) Impaired fasting blood sugar: Code(s): R73.01 - Impaired fasting glucose Category: Medical (4) Bacterial arthritis of hip: Code(s): M00.859 - Arthritis due to other bacteria, unspecified hip Category: Medical (5) Allergic rhinitis: Code(s): J30.9 - Allergic rhinitis, unspecified Category: Medical Qualifiers: Allergic rhinitis trigger: other Allergic rhinitis seasonality: unspecified Qualified Code(s): J30.89 - Other allergic rhinitis (6) Osteoarthritis of both knees: Code(s): M17.0 - Bilateral primary osteoarthritis of knee Category: Medical Qualifiers: Osteoarthritis type: primary Qualified Code(s): M17.0 - Bilateral primary osteoarthritis of knee (7) LFT elevation: Code(s): R79.89 - Other specified abnormal findings of blood chemistry Category: Medical Plan Patient is 63-year-old gentleman, this is his regular follow-up appointment Patient is doing well Blood pressure is well-controlled Patient is taking atenolol chlorthalidone 100-25 mg And amlodipine 5 mg , tolerating medications no side effects Patient has osteoarthritis multiple joints , he was taking meloxicam but he has stopped Now taking Tylenol only as needed Allergies are stable BMI is still elevated patient is trying to lose more weight Liver enzymes slightly elevated but stable Reminded to do labs again. Flu vaccine was given as patient does not want to have the stronger flu vaccine through pharmacy Follow-up 4 months Orders: Orders Influenza [id number] Immunization Today Z23 - Encounter for immunization Medications: Refilled cetirizine (Zyrtec) 10 mg PO DAILY PRN 90 tabs 3RF allergy symptoms 90 days
== END 2024-04-08 10:28 | disposition home or self-care (01) ==
PROVIDERS: PCP Internal Medicine; Visit Provider Internal Medicine
DX: I10 Essential (primary) hypertension (principal); E66.09 Other obesity due to excess calories; Z68.34 Body mass index [BMI] 34.0-34.9, adult; R73.01 Impaired fasting glucose; J30.89 Other allergic rhinitis; M17.0 Bilateral primary osteoarthritis of knee; R79.89 Other specified abnormal findings of blood chemistry; Z23 Encounter for immunization

== ENCOUNTER → 2024-04-08 09:52 | Outpatient (BNVA) | payer OTHER, SELFPAY | PROVIDERS: PCP Internal Medicine; Visit Provider Internal Medicine | DX: I10 Essential (primary) hypertension (principal); E66.09 Other obesity due to excess calories; Z68.34 Body mass index [BMI] 34.0-34.9, adult; R73.01 Impaired fasting glucose; M00.859 Arthritis due to other bacteria, unspecified hip; J30.89 Other allergic rhinitis; M17.0 Bilateral primary osteoarthritis of knee; R79.89 Other specified abnormal findings of blood chemistry; Z79.899 Other long term (current) drug therapy; Z23 Encounter for immunization | CPT/HCPCS: 90471; 90656; 96127; 99212 ==

== ENCOUNTER 2024-04-09 05:59 | Outpatient (REF) | payer MEDICARE, SELFPAY ==
[2024-04-09 06:26] LABS: MANUAL DIFF FLAG NO
[2024-04-09 07:49] LABS: Basophils Percent Auto 0.4 % (0-2); Eosinophils Absolute Auto 0.5 X10*3/uL (0.0-0.4); Eosinophils Percent Auto 7.2 % (0-4); Hemoglobin 14.8 g/dl (14.0-18.0); Imm Gran Abs Auto 0.02 X10*3/uL (0.00-0.03); Imm Gran Pct Auto 0.3 % (0.0-0.4); Lymphocytes Absolute Auto 2.1 X10*3/uL (1.2-4.9); Lymphocytes Percent Auto 31.3 % (20-40); Mean Corpuscular HGB Conc 34.4 g/dl (31.0-36.0); Mean Corpuscular Hemoglobin 31.3 pg (27.0-33.0); Mean Corpuscular Volume 90.9 fL (80.0-98.0); Mean Platelet Volume 10.8 fL (9.4-12.4); Monocytes Absolute Auto 0.6 X10*3/uL (0.1-1.2); Monocytes Percent Auto 8.3 % (2-11); Neutrophils Absolute Auto 3.6 x10*3/uL (2.0-8.3); Neutrophils Percent Auto 52.5 % (45-73); Platelet Count 207 X10*3/uL (160-400); Red Blood Count 4.73 X10*6/uL (4.60-5.80); Red Cell Distribution Width 13.1 % (11.0-16.0); White Blood Count 6.8 X10*3/uL (4.8-10.8)
[2024-04-09 07:51] LABS: Estimated Average Glucose 111 mg/dL; Hemoglobin A1C 143.6617 umol/L; Hemoglobin A1c % 5.5 % (<6.0); Total Hemoglobin (HGBA1C) 3938.7749 umol/L
[2024-04-09 08:23] LABS: Alanine Aminotransferase 119 U/L (0-40); Albumin Level 4.4 g/dL (3.5-5.0); Alkaline Phosphatase 84 U/L (39-117); Anion Gap 16 (12-20); Aspartate Amino Transferase 75 U/L (5-37); Bilirubin Total 0.9 mg/dL (0.0-1.0); Blood Urea Nitrogen 14 mg/dL (9-16); Carbon Dioxide 25 mmol/L (22-29); Chloride 102 mmol/L (96-108); Cholesterol 175 mg/dL (<200); Estimated Glomerular Filt Rate > 60; Glucose Fasting 116 mg/dL (60-99); HDL Cholesterol 55 mg/dL (>40); LDL Cholesterol Calculated 107 mg/dL (<100); Potassium 3.8 mmol/L (3.3-5.1); Sodium 139 mmol/L (135-145); Total Protein 7.9 g/dL (6.5-8.0); Triglycerides 65 mg/dL (<150)
== END 2024-04-09 06:00 | disposition home or self-care (01) ==
LOC: HO.LAB 05:59
PROVIDERS: PCP Internal Medicine; Visit Provider Internal Medicine
DX: Z00.01 Encounter for general adult medical examination with abnormal findings (principal); R79.89 Other specified abnormal findings of blood chemistry; I10 Essential (primary) hypertension; R73.01 Impaired fasting glucose; M00.859 Arthritis due to other bacteria, unspecified hip; E66.09 Other obesity due to excess calories; Z68.34 Body mass index [BMI] 34.0-34.9, adult; M17.0 Bilateral primary osteoarthritis of knee
CPT/HCPCS: 36415; 80053; 80061; 83036; 85025

== ENCOUNTER 2024-08-05 11:41 | Outpatient (AMB) | payer MEDICARE, SELFPAY ==
[2024-08-05 11:52] VITALS: BP 130/80; PULSE 68; O2SAT 98; BMI 33.8
--- NOTE | 2024-08-05 11:52 | MHC.PC.OV ---
Vital Signs 08/05/24 11:52 Height 5 ft 6 in Weight 209 lb 8 oz BMI 33.8 BP 130/80 Blood Pressure Location Rt brachial Position Sitting Pulse 68 Pulse Source Pulse Oximeter Pulse Oximetry (%) 98 Oxygen Delivery Method Room Air Intake Visit Reasons: 4 months f/u Allergies N.K.D.A. Allergy (Mild, Uncoded 09/18/23 10:58) none Medication List - Last Reconciled 08/05/24 by Poonam Palomares MD amlodipine 5 mg PO DAILY atenolol-chlorthalidone 100-25 mg 1 tab PO DAILY cetirizine (Zyrtec) 10 mg PO DAILY PRN 90 days fluticasone propionate 50 mcg/actuation (Flonase Allergy Relief) 1 spray intranasal BID 30 days meloxicam 7.5 mg PO DAILY 90 days Tobacco use date assessed: 08/05/24 Fall risk assessment: No Falls in past year Last assessed Fall Risk: 08/05/24 Dental Screening Dental Screen Date: 08/05/24 Did you have a dental visit in the last 12 months?: Yes Did you have a dental problem in the last 6 months where you did not have access to dental care?: No Was dental information given to patient?: Patient has dentist HPI 4 months f/u HPI Details Patient is 63-year-old gentleman, this is his regular follow-up appointment Patient has developed onychomycosis all toes of right foot We discussed the treatment options, oral medication versus local treatment For local treatment he will need to see a wine sales representative, patient does not want to do that At oral medication is not advisable due to elevated liver enzymes Blood pressure is well-controlled Patient is taking atenolol chlorthalidone 100-25 mg And amlodipine 5 mg , tolerating medications no side effects Patient has osteoarthritis multiple joints , he was taking meloxicam but he has stopped Now taking Tylenol only as needed Allergies are stable BMI is still elevated patient is trying to lose more weight Liver enzymes slightly elevated but stable Lab order placed to be done before next visit in January [facility] Social History Housing: House Alcohol intake: current Alcohol intake frequency: a few times a month Patient Tobacco Use Status: Never used Tobacco e-Cigarette/Vaping Use: Never Used service: No Current occupational status: employed 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 Robert Anglin, Pascale Blankenship, Glenn Blue and colleagues, with an educational ehsan from [employer] Review of Systems Const Denies chills and Denies fever(s) ENT Denies epistaxis and Denies nasal discharge Card Denies chest pain Resp Denies chest congestion, Denies cough and Denies hemoptysis GI Denies diarrhea and Denies nausea Skin/Breast Denies rash Neuro Reports no additional complaints Psych Reports no additional complaints Endo Reports no additional complaints Physical exam (Primary Care) Vital Signs: Last Vital Signs Pulse 68 08/05/24 11:52 BP 130/80 08/05/24 11:52 Pulse Ox 98 08/05/24 11:52 Oxygen Delivery Method Room Air 08/05/24 11:52 BMI result Body Mass Index 33.8 Tobacco/Smoking Status: Tobacco use Status Tobacco use date assessed 08/05/24 08/05/24 11:56 Patient Tobacco Use Status Never used Tobacco 08/05/24 11:56 e-Cigarette/Vaping Use Never Used 08/05/24 11:56 Thrive Assessment: Date of Thrive Assessment Date Thrive assessed 08/05/24 08/05/24 11:56 Const General: cooperative, comfortable and no acute distress Orientation/consciousness: patient oriented x3 HENMT Head: Yes normocephalic Eyes General: appearance normal, both eyes and all related structures Neck Neck: Yes supple Resp Effort & Inspection: normal respiratory effort, no cough and no stridor Cardio Rhythm: regular rhythm Heart sounds: S1 normal heart sound present and S2 normal heart sound present Skin General skin exam: turgor normal Neuro General: patient oriented x3, tone normal and moves all extremities Extrem Other: Disfigured thick toenails right foot all of the without sign of inflammation Right lower extremity: no edema Left lower extremity: no edema Coding Level of Care Code Est Pt Level 4 (45708) Complex EM visit Add On G2211 Diagnoses Hypertension, essential I10 Impaired fasting blood sugar R73.01 Class 1 obesity due to excess calories with serious comorbidity and body mass index (BMI) of 34.0 to 34.9 in adult E66.09; Z68.34 Obesity classification: adult class 1 (BMI 30 - 34.9) Serious obesity comorbidity presence: with serious comorbidity Body mass index: BMI 34.0-34.9 Primary osteoarthritis of both knees M17.0 Osteoarthritis type: primary LFT elevation R79.89 Onychomycosis B35.1 Assessment & Plan Assessment & Plan (1) Hypertension, essential: Code(s): I10 - Essential (primary) hypertension Category: Medical (2) Impaired fasting blood sugar: Code(s): R73.01 - Impaired fasting glucose Category: Medical (3) Obesity due to excess calories: Code(s): E66.09 - Other obesity due to excess calories Category: Medical Qualifiers: Obesity classification: adult class 1 (BMI 30 - 34.9) Serious obesity comorbidity presence: with serious comorbidity Body mass index: BMI 34.0-34.9 Qualified Code(s): E66.09 - Other obesity due to excess calories; Z68.34 - Body mass index [BMI] 34.0-34.9, adult (4) Osteoarthritis of both knees: Code(s): M17.0 - Bilateral primary osteoarthritis of knee Category: Medical Qualifiers: Osteoarthritis type: primary Qualified Code(s): M17.0 - Bilateral primary osteoarthritis of knee (5) LFT elevation: Code(s): R79.89 - Other specified abnormal findings of blood chemistry Category: Medical (6) Onychomycosis: Code(s): B35.1 - Tinea unguium Category: Medical Plan Patient is 63-year-old gentleman, this is his regular follow-up appointment Patient has developed onychomycosis all toes of right foot We discussed the treatment options, oral medication versus local treatment For local treatment he will need to see a wine sales representative, patient does not want to do that At oral medication is not advisable due to elevated liver enzymes Blood pressure is well-controlled Patient is taking atenolol chlorthalidone 100-25 mg And amlodipine 5 mg , tolerating medications no side effects Patient has osteoarthritis multiple joints , he was taking meloxicam but he has stopped Now taking Tylenol only as needed Allergies are stable BMI is still elevated patient is trying to lose more weight Liver enzymes slightly elevated but stable Lab order placed to be done before next visit in January fasting Orders: Orders Comprehensive [place]. Panel Fast 4 Months B35.1 - Tinea unguium, E66.09 - Other obesity due to excess calories, I10 - Essential (primary) hypertension, M17.0 - Bilateral primary osteoarthritis of knee, R73.01 - Impaired fasting glucose, R79.89 - Other specified abnormal findings of blood chemistry, Z68.34 - Body mass index [BMI] 34.0-34.9, adult Lipid Panel 4 Months B35.1 - Tinea unguium, E66.09 - Other obesity due to excess calories, I10 - Essential (primary) hypertension, M17.0 - Bilateral primary osteoarthritis of knee, R73.01 - Impaired fasting glucose, R79.89 - Other specified abnormal findings of blood chemistry, Z68.34 - Body mass index [BMI] 34.0-34.9, adult Vitamin D 25-OH (D2 and D3) 4 Months B35.1 - Tinea unguium, E66.09 - Other obesity due to excess calories, I10 - Essential (primary) hypertension, M17.0 - Bilateral primary osteoarthritis of knee, R73.01 - Impaired fasting glucose, R79.89 - Other specified abnormal findings of blood chemistry, Z68.34 - Body mass index [BMI] 34.0-34.9, adult Complete Blood Count Auto Diff 4 Months B35.1 - Tinea unguium, E66.09 - Other obesity due to excess calories, I10 - Essential (primary) hypertension, M17.0 - Bilateral primary osteoarthritis of knee, R73.01 - Impaired fasting glucose, R79.89 - Other specified abnormal findings of blood chemistry, Z68.34 - Body mass index [BMI] 34.0-34.9, adult Hemoglobin A1c 4 Months B35.1 - Tinea unguium, E66.09 - Other obesity due to excess calories, I10 - Essential (primary) hypertension, M17.0 - Bilateral primary osteoarthritis of knee, R73.01 - Impaired fasting glucose, R79.89 - Other specified abnormal findings of blood chemistry, Z68.34 - Body mass index [BMI] 34.0-34.9, adult
== END 2024-08-05 14:11 | disposition home or self-care (01) ==
PROVIDERS: PCP Internal Medicine; Visit Provider Internal Medicine
DX: I10 Essential (primary) hypertension (principal); R73.01 Impaired fasting glucose; E66.09 Other obesity due to excess calories; Z68.34 Body mass index [BMI] 34.0-34.9, adult; M17.0 Bilateral primary osteoarthritis of knee; R79.89 Other specified abnormal findings of blood chemistry; B35.1 Tinea unguium

== ENCOUNTER → 2024-08-05 11:41 | Outpatient (BNVA) | payer MEDICARE, SELFPAY | PROVIDERS: PCP Internal Medicine; Visit Provider Internal Medicine | DX: I10 Essential (primary) hypertension (principal); R73.01 Impaired fasting glucose; E66.09 Other obesity due to excess calories; Z68.34 Body mass index [BMI] 34.0-34.9, adult; R79.89 Other specified abnormal findings of blood chemistry; B35.1 Tinea unguium; Z71.3 Dietary counseling and surveillance | CPT/HCPCS: 99212 ==

== ENCOUNTER 2025-01-21 10:29 | Outpatient (AMB) | payer MEDICARE, SELFPAY ==
[2025-01-21 10:31] VITALS: BP 130/80; PULSE 70; O2SAT 97; BMI 34.1
--- NOTE | 2025-01-21 10:31 | A.OFFPC_ITS ---
Vital Signs 01/21/25 10:31 Height 5 ft 6 in Weight 211 lb BMI 34.1 BP 130/80 Blood Pressure Location Lt brachial Position Sitting Pulse 70 Pulse Source Pulse Oximeter Pulse Oximetry (%) 97 Oxygen Delivery Method Room Air Intake Visit Reasons: PE - see comments Accompanied by: Spouse Allergies N.K.D.A. Allergy (Mild, Uncoded 01/21/25 10:31) none Medication List - Last Reconciled 01/21/25 by Poonam Palomares MD amlodipine 5 mg PO DAILY atenolol-chlorthalidone 100-25 mg 1 tab PO DAILY cetirizine (Zyrtec) 10 mg PO DAILY PRN 90 days Tobacco use date assessed: 08/05/24 Fall risk assessment: No Falls in past year Last assessed Fall Risk: 01/21/25 Dental Screening Dental Screen Date: 08/05/24 HPI PE - see comments HPI Details PE apt The patient is a 64-year-old male presenting with plantar fasciitis symptoms. Plantar Fasciitis: - The patient reports pain in the right foot, described as feeling like something is under the foot. - Pain occurs intermittently, lasting a few days at a time and resolves on its own. - Pain predominantly noticed after weigh t-bearing activities, such as walking or standing for prolonged periods. - No specific medication used for pain r elief other than occasional Tylenol. Essential Hypertension: - Blood pressure managed with atenolol, chlorthalidone, and amlodipine. - Blood pressure currently stable at 130 /80 mmHg. c/o feeling tried more easily and SOB Allergic Rhinitis: - Managed with cetirizine. - No acute exacerbations reported. Social History: - Reports weight gain of a few pounds si nce the previous visit. - No history of smoking. - Notes feeling of fatigue, especially a fter exertion Health Maintenance - Overdue for colonoscopy; last known co lonoscopy in 2017, recommended every 5 years. - Blood tests needed every 6 months to m onitor kidney function and electrolytes due to hypertension medications. - No records of tetanus, pneumonia, or s hingles vaccines; vaccinations needed. - Weight management was discussed due to recent weight gain. [place] [facility] - Dr. Willett, a colorectal surgeon, re ferenced for potential follow-up for colonoscopy. Medications - Atenolol for hypertension - Chlorthalidone for hypertension - Amlodipine for hypertension - Cetirizine for allergic rhinitis Employment - Reports working and feeling fatigue af ter exertive activities, requiring breaks. Diagnostic results Tests and Diagnostics: - EKG performed during visit; results show first degree av block. Patient Instructions - Schedule and undergo colonoscopy. - Obtain blood tests within the next cou ple of days, with fasting if required. - Start wearing proper footwear with arc h support for plantar fasciitis management. - Obtain tetanus, pneumonia, and shingle s vaccines from the pharmacy. - Monitor weight and consider weight red uction strategies. - Echo heart ordered - stop atenolol Hctz, start aldacton 50 mg and double amlodipin to 10 mg f/u 4 wks Review of Systems - General: No fever no chills - Neurological: No headaches no dizzin ess - Ear nose throat: No sore throat no hearing difficulty no ear pain - Cardiovascular: No syncope, no chest pain, no palpitations - Gastrointestinal: No nausea vomiting or diarrhea - Endocrine: No polyuria polydipsia no heat intolerance - Genitourinary: No dysuria - Skin: No new complaints Physical Exam General: Cooperative, healthy appearing, comfortable, no acute distress Orientation: Patient oriented x3 Head: Normal to inspection Ears: Within normal limit visually Nose: Normal external nose present Face and sinus: Normal facial exam Eyes: Appearance normal, extraocular movement intact pupils reactive Neck: Normal visual inspection and supple Respiratory: Normal respiratory effort and able to speak in complete sentences. Clear to auscultation, no stridor Cardiovascular: S1 and S2 RRR, GI: Normal to inspection. 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 1. Little interest or pleasure in doing things: several days 2. Feeling down, depressed, or hopeless: not at all 3. Trouble falling or staying asleep, or sleeping too much: not at all 4. Feeling tired or having little energy: more than half the days 5. Poor appetite or overeating: not at all 6. Feeling bad about yourself - or that you are a failure or have let yourself or your family down: not at all 7. Trouble concentrating on things, such as reading the newspaper or watching television: not at all 8. Moving or speaking so slowly that other people could have noticed. Or the opposite - being so fidgety or restless that you have been moving around a lot more than usual: several days 9. Thoughts that you would be better off or of hurting yourself in some way: not at all Total score: 4 Depression Screening Interpretation: Negative Depression Screening Done: Yes 99840 - PHQ-9 Billing: Yes Source: Developed by Drs. Robert Anglin, Pascale Blankenship, Glenn Blue and colleagues, with an educational ehsan from [employer]. Thrive Questionnaire Date Thrive assessed: 01/21/25 I am a: Patient What is your living situation today?: I have a steady place to live Within the past 12 months, did the food you bought not last and you didn't have the money to get more?: Never true Within the past 12 months, did you worry whether your food would run out before you got money to buy more?: Never true Do you have trouble paying for medicines?: No Do you have trouble getting transportation to medical appointments?: No Do you have trouble paying your heating and electricity bill?: No Do you have trouble taking care of your child, family member or friend?: No Do you have trouble with day-to-day activities such as bathing, preparing meals, shopping, managing finances, etc.?: No Are you currently unemployed and looking for a job?: No Are you interested in more education?: No Please select the resources that you would like help with: None Currently or been in a relationship where the following occur: I choose not to answer THRIVE Score: 0 AUDIT C Alcohol Use Questionnaire (AUDIT-C) 1. How often do you have a drink containing alcohol?: Never 3. How often do you have six or more drinks on one occasion?: Never Total Score: 0 Score Reviewed/Action Taken: Yes JONN-7 AMB Questionnaire JONN-7 Date JONN - 7 assessed: 01/21/25 Feeling nervous, anxious, or on edge: 0 = Not at all Not being able to stop or control worryin = Not at all Worrying too much about different things: 0 = Not at all Trouble relaxin = Not at all Being so restless that it is hard to sit still: 0 = Not at all Becoming easily annoyed or irritable: 0 = Not at all Feeling afraid as if something awful might happen: 0 = Not at all Total JONN-7 score (0-4 normal; 5-9 mild; 10-14 moderate; 15-21 severe): 0 Source: Developed by Drs. Robert Anglin, Pascale Blankenship, Glenn Blue and colleagues, with an educational ehsan from [employer]. JONN-7 Assessment Billing JONN-7 Assessment Tool: JONN-7 Assessment 35878 Physical exam (Primary Care) Vital Signs: Last Vital Signs Pulse 70 01/21/25 10:31 BP 130/80 01/21/25 10:31 Pulse Ox 97 01/21/25 10:31 Oxygen Delivery Method Room Air 01/21/25 10:31 BMI result Body Mass Index 34.1 Tobacco/Smoking Status: Tobacco use Status Tobacco use date assessed 08/05/24 01/21/25 10:31 Patient Tobacco Use Status Never used Tobacco 01/21/25 10:31 e-Cigarette/Vaping Use Never Used 01/21/25 10:31 PHQ-9: PHQ-9 Score PHQ-9: Total score 4 01/21/25 10:31 Depression Screening Interpretation: Negative Thrive Assessment: Date of Thrive Assessment Date Thrive assessed 01/21/25 01/21/25 10:31 Currently or been in a relationship where the following occur: I choose not to answer Coding Level of Care Code Est Pt Level 4 (21812) Est Pt Prev Care >65y(31790) Diagnoses Encounter for general adult medical examination with abnormal findings Z00.01 Shortness of breath R06.02 Fatigue, unspecified type R53.83 Fatigue type: unspecified First degree AV block I44.0 Hypertension, essential I10 Foot pain, right M79.671 Colon cancer screening Z12.11 Impaired fasting blood sugar R73.01 Class 1 obesity due to excess calories with serious comorbidity and body mass index (BMI) of 34.0 to 34.9 in adult E66.09; Z68.34 Obesity classification: adult class 1 (BMI 30 - 34.9) Serious obesity comorbidity presence: with serious comorbidity Body mass index: BMI 34.0-34.9 LFT elevation R79.89 Additional Codes JONN-7 Assessment Billing - JONN-7 Assessment Tool: JONN-7 Assessment [id number] ([id number]) PHQ-9 - 58573 - PHQ-9 Billing: Yes ([id number]) Assessment & Plan Assessment & Plan (1) Encounter for general adult medical examination with abnormal findings: Code(s): Z00.01 - Encounter for general adult medical examination with abnormal findings Category: Medical (2) Shortness of breath: Code(s): R06.02 - Shortness of breath Category: Medical (3) Fatigue: Code(s): R53.83 - Other fatigue Category: Medical Qualifiers: Fatigue type: unspecified Qualified Code(s): R53.83 - Other fatigue (4) First degree AV block: Code(s): I44.0 - Atrioventricular block, first degree Category: Medical (5) Hypertension, essential: Code(s): I10 - Essential (primary) hypertension Category: Medical (6) Foot pain, right: Code(s): M79.671 - Pain in right foot Category: Medical (7) Colon cancer screening: Code(s): Z12.11 - Encounter for screening for malignant neoplasm of colon Category: Medical (8) First degree AV block: Code(s): I44.0 - Atrioventricular block, first degree Category: Medical (9) Impaired fasting blood sugar: Code(s): R73.01 - Impaired fasting glucose Category: Medical (10) Obesity due to excess calories: Code(s): E66.09 - Other obesity due to excess calories Category: Medical Qualifiers: Obesity classification: adult class 1 (BMI 30 - 34.9) Serious obesity comorbidity presence: with serious comorbidity Body mass index: BMI 34.0-34.9 Qualified Code(s): E66.09 - Other obesity due to excess calories; Z68.34 - Body mass index [BMI] 34.0-34.9, adult (11) LFT elevation: Code(s): R79.89 - Other specified abnormal findings of blood chemistry Category: Medical Plan PE apt The patient is a 64-year-old male presenting with plantar fasciitis symptoms. Plantar Fasciitis: - The patient reports pain in the right foot, described as feeling like something is under the foot. - Pain occurs intermittently, lasting a few days at a time and resolves on its own. - Pain predominantly noticed after weight-bearing activities, such as walking or standing for prolonged periods. - No specific medication used for pain relief other than occasional Tylenol. Essential Hypertension: - Blood pressure managed with atenolol, chlorthalidone, and amlodipine. - Blood pressure currently stable at 130/80 mmHg. c/o feeling tried more easily and SOB Allergic Rhinitis: - Managed with cetirizine. - No acute exacerbations reported. Social History: - Reports weight gain of a few pounds since the previous visit. - No history of smoking. - Notes feeling of fatigue, especially after exertion Health Maintenance - Overdue for colonoscopy; last known colonoscopy in 2017, recommended every 5 years. - Blood tests needed every 6 months to monitor kidney function and electrolytes due to hypertension medications. - No records of tetanus, pneumonia, or shingles vaccines; vaccinations needed. - Weight management was discussed due to recent weight gain. [place] [facility] - Dr. Willett, a colorectal surgeon, referenced for potential follow-up for colonoscopy. Medications - Atenolol for hypertension - Chlorthalidone for hypertension - Amlodipine for hypertension - Cetirizine for allergic rhinitis Employment - Reports working and feeling fatigue after exertive activities, requiring breaks. Diagnostic results Tests and Diagnostics: - EKG performed during visit; results show first degree av block. Patient Instructions - Schedule and undergo colonoscopy. - Obtain blood tests within the next couple of days, with fasting if required. - Start wearing proper footwear with arch support for plantar fasciitis management. - Obtain tetanus, pneumonia, and shingles vaccines from the pharmacy. - Monitor weight and consider weight reduction strategies. - Echo heart ordered - stop atenolol Hctz, start aldacton 50 mg and double amlodipin to 10 mg f/u 4 wks Orders: Orders Uric Acid Today M79.671 - Pain in right foot Complete Blood Count Auto Diff Today E66.09 - Other obesity due to excess calories, I10 - Essential (primary) hypertension, I44.0 - Atrioventricular block, first degree, R06.02 - Shortness of breath, R53.83 - Other fatigue, R73.01 - Impaired fasting glucose, R79.89 - Other specified abnormal findings of blood chemistry, Z00.01 - Encounter for general adult medical examination with abnormal findings, Z68.34 - Body mass index [BMI] 34.0-34.9, adult Comprehensive [place]. Panel Fast Today E66.09 - Other obesity due to excess calories, I10 - Essential (primary) hypertension, I44.0 - Atrioventricular block, first degree, R06.02 - Shortness of breath, R53.83 - Other fatigue, R73.01 - Impaired fasting glucose, R79.89 - Other specified abnormal findings of blood chemistry, Z00.01 - Encounter for general adult medical examination with abnormal findings, Z68.34 - Body mass index [BMI] 34.0-34.9, adult Hemoglobin A1c Today E66.09 - Other obesity due to excess calories, I10 - Essential (primary) hypertension, I44.0 - Atrioventricular block, first degree, R06.02 - Shortness of breath, R53.83 - Other fatigue, R73.01 - Impaired fasting glucose, R79.89 - Other specified abnormal findings of blood chemistry, Z00.01 - Encounter for general adult medical examination with abnormal findings, Z68.34 - Body mass index [BMI] 34.0-34.9, adult TSH reflex Free T4 Today E66.09 - Other obesity due to excess calories, I10 - Essential (primary) hypertension, I44.0 - Atrioventricular block, first degree, R06.02 - Shortness of breath, R53.83 - Other fatigue, R73.01 - Impaired fasting glucose, R79.89 - Other specified abnormal findings of blood chemistry, Z00.01 - Encounter for general adult medical examination with abnormal findings, Z68.34 - Body mass index [BMI] 34.0-34.9, adult Vitamin B12 Today E66.09 - Other obesity due to excess calories, I10 - Essential (primary) hypertension, I44.0 - Atrioventricular block, first degree, R06.02 - Shortness of breath, R53.83 - Other fatigue, R73.01 - Impaired fasting glucose, R79.89 - Other specified abnormal findings of blood chemistry, Z00.01 - Encounter for general adult medical examination with abnormal findings, Z68.34 - Body mass index [BMI] 34.0-34.9, adult B Type Natriuretic Peptide Today E66.09 - Other obesity due to excess calories, I10 - Essential (primary) hypertension, I44.0 - Atrioventricular block, first degree, R06.02 - Shortness of breath, R53.83 - Other fatigue, R73.01 - Impaired fasting glucose, R79.89 - Other specified abnormal findings of blood chemistry, Z00.01 - Encounter for general adult medical examination with abnormal findings, Z68.34 - Body mass index [BMI] 34.0-34.9, adult CA echo transthoracic complete Today I44.0 - Atrioventricular block, first degree, R06.02 - Shortness of breath Lipid Panel Today E66.09 - Other obesity due to excess calories, I10 - Essential (primary) hypertension, I44.0 - Atrioventricular block, first degree, R06.02 - Shortness of breath, R53.83 - Other fatigue, R73.01 - Impaired fasting glucose, R79.89 - Other specified abnormal findings of blood chemistry, Z00.01 - Encounter for general adult medical examination with abnormal findings, Z68.34 - Body mass index [BMI] 34.0-34.9, adult Vitamin D 25-OH (D2 and D3) Today E66.09 - Other obesity due to excess calories, I10 - Essential (primary) hypertension, I44.0 - Atrioventricular block, first degree, R06.02 - Shortness of breath, R53.83 - Other fatigue, R73.01 - Impaired fasting glucose, R79.89 - Other specified abnormal findings of blood chemistry, Z00.01 - Encounter for general adult medical examination with abnormal findings, Z68.34 - Body mass index [BMI] 34.0-34.9, adult C Reactive Protein Today E66.09 - Other obesity due to excess calories, I10 - Essential (primary) hypertension, I44.0 - Atrioventricular block, first degree, R06.02 - Shortness of breath, R53.83 - Other fatigue, R73.01 - Impaired fasting glucose, R79.89 - Other specified abnormal findings of blood chemistry, Z00.01 - Encounter for general adult medical examination with abnormal findings, Z68.34 - Body mass index [BMI] 34.0-34.9, adult Referrals Colon & Rectal Referral Z12.11 - Encounter for screening for malignant neoplasm of colon Medications: New spironolactone 50 mg PO DAILY 90 tabs 0RF Discontinued atenolol-chlorthalidone 100-25 mg Discontinued Reason: Doctor's Order 1 tab PO DAILY 90 tabs 0RF
== END 2025-01-21 12:20 | disposition home or self-care (01) ==
PROVIDERS: PCP Internal Medicine; Visit Provider Internal Medicine
DX: Z00.01 Encounter for general adult medical examination with abnormal findings (principal); R06.02 Shortness of breath; E66.09 Other obesity due to excess calories; Z68.34 Body mass index [BMI] 34.0-34.9, adult; R53.83 Other fatigue; I44.0 Atrioventricular block, first degree; I10 Essential (primary) hypertension; M79.671 Pain in right foot; Z12.11 Encounter for screening for malignant neoplasm of colon; R73.01 Impaired fasting glucose; R79.89 Other specified abnormal findings of blood chemistry

== ENCOUNTER → 2025-01-21 10:29 | Outpatient (BNVA) | payer MEDICARE, SELFPAY | PROVIDERS: PCP Internal Medicine; Visit Provider Internal Medicine | DX: Z00.01 Encounter for general adult medical examination with abnormal findings (principal); R06.02 Shortness of breath; R53.83 Other fatigue; I44.0 Atrioventricular block, first degree; I10 Essential (primary) hypertension; M79.671 Pain in right foot; R73.01 Impaired fasting glucose; E66.09 Other obesity due to excess calories; Z68.34 Body mass index [BMI] 34.0-34.9, adult; R79.89 Other specified abnormal findings of blood chemistry | CPT/HCPCS: 93005; 96127; 99212; 99397 ==

== ENCOUNTER 2025-01-22 06:19 | Outpatient (REF) | payer MEDICARE, SELFPAY ==
[2025-01-22 10:01] LABS: MANUAL DIFF FLAG NO
[2025-01-22 10:02] LABS: Hematocrit 41.4 % (42.0-52.0); Hemoglobin 14.7 g/dl (14.0-18.0); Imm Gran Abs Auto 0.03 X10*3/uL (0.00-0.03); Imm Gran Pct Auto 0.4 % (0.0-0.4); Lymphocytes Absolute Auto 2.7 X10*3/uL (1.2-4.9); Mean Corpuscular HGB Conc 35.5 g/dl (31.0-36.0); Mean Corpuscular Hemoglobin 31.7 pg (27.0-33.0); Mean Corpuscular Volume 89.4 fL (80.0-98.0); NRBC Abs Auto 0.000 X10*3/uL (0.0-0.012); NRBC Pct Auto 0.0 /100WBC (0.0-0.2); Platelet Count 211 X10*3/uL (160-400); Red Blood Count 4.63 X10*6/uL (4.60-5.80); White Blood Count 7.5 X10*3/uL (4.8-10.8)
[2025-01-22 10:10] LABS: Hemoglobin A1C 145.6031 umol/L; Total Hemoglobin (HGBA1C) 3807.3960 umol/L
[2025-01-22 10:20] LABS: B Type Natriuretic Peptide 36 pg/mL (<100)
[2025-01-22 10:27] LABS: Alanine Aminotransferase 119 U/L (0-40); Albumin Level 4.3 g/dL (3.5-5.0); Alkaline Phosphatase 83 U/L (39-117); Anion Gap 13 (12-20); Aspartate Amino Transferase 91 U/L (5-37); Blood Urea Nitrogen 15 mg/dL (9-16); Calcium 9.2 mg/dL (8.4-10.2); Carbon Dioxide 27 mmol/L (22-29); Chloride 102 mmol/L (96-108); Cholesterol 163 mg/dL (<200); Estimated Glomerular Filt Rate > 60; HDL Cholesterol 46 mg/dL (>40); Potassium 3.5 mmol/L (3.3-5.1); Sodium 138 mmol/L (135-145); Total Protein 7.4 g/dL (6.5-8.0); Triglycerides 93 mg/dL (<150); Uric Acid 5.9 mg/dL (3.4-7.0)
[2025-01-22 10:48] LABS: Vitamin B12 469 pg/mL (200-900)
[2025-01-26 15:38] LABS: Vitamin D 25-OH, D2 <4 ng/mL; Vitamin D 25-OH, D3 32 ng/mL; Vitamin D 25-OH, Total 32 ng/mL (30-100)
== END 2025-01-22 06:20 | disposition home or self-care (01) ==
LOC: HO.HMGCLDS 06:19
PROVIDERS: PCP Internal Medicine; Visit Provider Internal Medicine
DX: Z00.01 Encounter for general adult medical examination with abnormal findings (principal); I10 Essential (primary) hypertension; M79.671 Pain in right foot; I44.0 Atrioventricular block, first degree; E66.09 Other obesity due to excess calories; Z68.34 Body mass index [BMI] 34.0-34.9, adult; R79.89 Other specified abnormal findings of blood chemistry; R06.02 Shortness of breath; R53.83 Other fatigue; R73.01 Impaired fasting glucose
CPT/HCPCS: 36415; 80053; 80061; 82306; 82607; 83036; 83880; 84443; 84550; 85025; 86140

== ENCOUNTER 2025-02-20 08:43 | Outpatient (AMB) | payer MEDICARE, SELFPAY ==
[2025-02-20 08:45] VITALS: BP 132/80; PULSE 83; O2SAT 98; BMI 33.2
--- NOTE | 2025-02-20 08:45 | MHC.PC.OV ---
Vital Signs 02/20/25 08:45 Height 5 ft 6 in Weight 206 lb BMI 33.2 BP 132/80 Blood Pressure Location Lt brachial Position Sitting Pulse 83 Pulse Source Pulse Oximeter Pulse Oximetry (%) 98 Oxygen Delivery Method Room Air Intake Visit Reasons: 1m follow up Driver Messenger Required: No Accompanied by: Self / Same As Patient Allergies N.K.D.A. Allergy (Mild, Uncoded 02/20/25 08:45) none Medication List - Last Reconciled 02/20/25 by Poonam Palomares MD amlodipine 5 mg PO DAILY cetirizine (Zyrtec) 10 mg PO DAILY PRN 90 days spironolactone 50 mg PO DAILY Tobacco use date assessed: 08/05/24 Fall risk assessment: No Falls in past year Last assessed Fall Risk: 02/20/25 Dental Screening Dental Screen Date: 08/05/24 HPI 1m follow up HPI Details History The patient is a 64-year-old male presenting with foot pain, hypertension, elevated liver enzymes, shortness of breath, and concerns related to weight and prediabetes. Foot Pain: - Intermittent foot pain with improvement noted. Hypertension: - Blood pressure effectively controlled with current medications. Elevated Liver Enzymes: - Continued elevated liver enzymes; fatty liver suspected. Shortness of Breath: - Improvement noted; previously reported by spouse. Weight and Prediabetes: - Patient actively working on weight management to address prediabetes risk. Medical History: - Hypertension - Prediabetes - Elevated liver enzymes (suspected fatty liver) Medications: - Amlodipine 5 mg for hypertension - Spironolactone 50 mg for hypertension - Zyrtec for allergies Social History: - Actively engaged in weight loss - Acknowledges aging impacts physical abilities Problem List - Hypertension - Prediabetes - Elevated liver enzymes - Episodic foot pain - Shortness of breath (historical) Diagnostic results - Labs: Normal CBC (January), A1C 5.7, AST 91, ALT 119, normal B12 and Vitamin D levels - Imaging: Previous ultrasound indicated fatty liver (June last year) Patient Instructions - Continue current blood pressure medications. - Engage in weight loss activities to improve overall health. - Monitor blood sugar levels regularly. - Discuss potential liver follow-up with ultrasound. - Watch for any new or worsening symptoms, especially related to breathing and foot pain. Review of Systems General: No fever no chills neurological: No headaches no dizziness ear nose throat: No sore throat no hearing difficulty no ear pain cardiovascular: No syncope, no chest pain, no palpitations gastrointestinal: No nausea vomiting or diarrhea endocrine: No polyuria polydipsia no heat intolerance genitourinary: No dysuria skin: No new complaints Physical Exam general: No acute distress HEENT: No acute findings neck: Supple respiratory system: Able to talk in full sentences, no audible wheeze no stridor cardiovascular: S1-S2 RRR gastrointestinal: No pain extremities: No new findings LEARNING STRATEGIST: Alert awake oriented x3 motor sensory intact skin: Normal turgor Patient was informed and verbally consented to the use of an ambient scribe for clinic note documentation during this visit. 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 1. Little interest or pleasure in doing things: several days 2. Feeling down, depressed, or hopeless: not at all 3. Trouble falling or staying asleep, or sleeping too much: not at all 4. Feeling tired or having little energy: more than half the days 5. Poor appetite or overeating: not at all 6. Feeling bad about yourself - or that you are a failure or have let yourself or your family down: not at all 7. Trouble concentrating on things, such as reading the newspaper or watching television: not at all 8. Moving or speaking so slowly that other people could have noticed. Or the opposite - being so fidgety or restless that you have been moving around a lot more than usual: several days 9. Thoughts that you would be better off or of hurting yourself in some way: not at all Total score: 4 Depression Screening Interpretation: Negative Depression Screening Done: Yes [id number] - PHQ-9 Billing: Yes Source: Developed by Drs. Robert Anglin, Glenn Barrera and colleagues, with an educational ehsan from [employer]. Thrive Questionnaire Date Thrive assessed: 01/21/25 I am a: Patient What is your living situation today?: I have a steady place to live Within the past 12 months, did the food you bought not last and you didn't have the money to get more?: Never true Within the past 12 months, did you worry whether your food would run out before you got money to buy more?: Never true Do you have trouble paying for medicines?: No Do you have trouble getting transportation to medical appointments?: No Do you have trouble paying your heating and electricity bill?: No Do you have trouble taking care of your child, family member or friend?: No Do you have trouble with day-to-day activities such as bathing, preparing meals, shopping, managing finances, etc.?: No Are you currently unemployed and looking for a job?: No Are you interested in more education?: No Please select the resources that you would like help with: None Currently or been in a relationship where the following occur: I choose not to answer THRIVE Score: 0 AUDIT C Alcohol Use Questionnaire (AUDIT-C) 1. How often do you have a drink containing alcohol?: Never 3. How often do you have six or more drinks on one occasion?: Never Total Score: 0 JONN-7 AMB Questionnaire JONN-7 Date JONN - 7 assessed: 01/21/25 Feeling nervous, anxious, or on edge: 0 = Not at all Not being able to stop or control worryin = Not at all Worrying too much about different things: 0 = Not at all Trouble relaxin = Not at all Being so restless that it is hard to sit still: 0 = Not at all Becoming easily annoyed or irritable: 0 = Not at all Feeling afraid as if something awful might happen: 0 = Not at all Total JONN-7 score (0-4 normal; 5-9 mild; 10-14 moderate; 15-21 severe): 0 Source: Developed by Drs. Robert Anglin, Glenn Barrera and colleagues, with an educational ehsan from [employer] JONN-7 Assessment Billing JONN-7 Assessment Tool: JONN-7 Assessment 01823 Physical exam (Primary Care) Vital Signs: Last Vital Signs Pulse 83 02/20/25 08:45 BP 132/80 02/20/25 08:45 Pulse Ox 98 02/20/25 08:45 Oxygen Delivery Method Room Air 02/20/25 08:45 BMI result Body Mass Index 33.2 Tobacco/Smoking Status: Tobacco use Status Tobacco use date assessed 08/05/24 02/20/25 08:46 Patient Tobacco Use Status Never used Tobacco 02/20/25 08:46 e-Cigarette/Vaping Use Never Used 02/20/25 08:46 PHQ-9: PHQ-9 Score PHQ-9: Total score 4 02/20/25 09:02 Depression Screening Interpretation: Negative Thrive Assessment: Date of Thrive Assessment Date Thrive assessed 01/21/25 02/20/25 08:46 Currently or been in a relationship where the following occur: I choose not to answer Coding Level of Care Code Est Pt Level 4 (25833) Complex EM visit Add On G2211 Diagnoses Hypertension, essential I10 Foot pain, right M79.671 First degree AV block I44.0 Impaired fasting blood sugar R73.01 Class 1 obesity due to excess calories with serious comorbidity and body mass index (BMI) of 34.0 to 34.9 in adult E66.09; Z68.34 Obesity classification: adult class 1 (BMI 30 - 34.9) Serious obesity comorbidity presence: with serious comorbidity Body mass index: BMI 34.0-34.9 LFT elevation R79.89 Additional Codes PHQ-9 - 88899 - PHQ-9 Billing: Yes ([id number]) JONN-7 Assessment Billing - JONN-7 Assessment Tool: JONN-7 Assessment 81368 ([id number]) Assessment & Plan Assessment & Plan (1) Hypertension, essential: Code(s): I10 - Essential (primary) hypertension Category: Medical (2) Foot pain, right: Code(s): M79.671 - Pain in right foot Category: Medical (3) First degree AV block: Code(s): I44.0 - Atrioventricular block, first degree Category: Medical (4) Impaired fasting blood sugar: Code(s): R73.01 - Impaired fasting glucose Category: Medical (5) Obesity due to excess calories: Code(s): E66.09 - Other obesity due to excess calories Category: Medical Qualifiers: Obesity classification: adult class 1 (BMI 30 - 34.9) Serious obesity comorbidity presence: with serious comorbidity Body mass index: BMI 34.0-34.9 Qualified Code(s): E66.09 - Other obesity due to excess calories; Z68.34 - Body mass index [BMI] 34.0-34.9, adult (6) LFT elevation: Code(s): R79.89 - Other specified abnormal findings of blood chemistry Category: Medical Plan History The patient is a 64-year-old male presenting with foot pain, hypertension, elevated liver enzymes, shortness of breath, and concerns related to weight and prediabetes. Foot Pain: - Intermittent foot pain with improvement noted. Hypertension: - Blood pressure effectively controlled with current medications. Elevated Liver Enzymes: - Continued elevated liver enzymes; fatty liver suspected. Shortness of Breath: - Improvement noted; previously reported by spouse. Weight and Prediabetes: - Patient actively working on weight management to address prediabetes risk. Medical History: - Hypertension - Prediabetes - Elevated liver enzymes (suspected fatty liver) Medications: - Amlodipine 5 mg for hypertension - Spironolactone 50 mg for hypertension - Zyrtec for allergies Social History: - Actively engaged in weight loss - Acknowledges aging impacts physical abilities Problem List - Hypertension - Prediabetes - Elevated liver enzymes - Episodic foot pain - Shortness of breath (historical) Diagnostic results - Labs: Normal CBC (January), A1C 5.7, AST 91, ALT 119, normal B12 and Vitamin D levels - Imaging: Previous ultrasound indicated fatty liver (June last year) Patient Instructions - Continue current blood pressure medications. - Engage in weight loss activities to improve overall health. - Monitor blood sugar levels regularly. - Discuss potential liver follow-up with ultrasound. - Watch for any new or worsening symptoms, especially related to breathing and foot pain.
== END 2025-02-20 09:01 | disposition home or self-care (01) ==
PROVIDERS: PCP Internal Medicine; Visit Provider Internal Medicine
DX: I10 Essential (primary) hypertension (principal); M79.671 Pain in right foot; I44.0 Atrioventricular block, first degree; R73.01 Impaired fasting glucose; E66.09 Other obesity due to excess calories; Z68.34 Body mass index [BMI] 34.0-34.9, adult; R79.89 Other specified abnormal findings of blood chemistry

== ENCOUNTER → 2025-02-20 08:43 | Outpatient (BNVA) | payer MEDICARE, SELFPAY | PROVIDERS: PCP Internal Medicine; Visit Provider Internal Medicine | DX: I10 Essential (primary) hypertension (principal); M79.671 Pain in right foot; I44.0 Atrioventricular block, first degree; R73.01 Impaired fasting glucose; E66.09 Other obesity due to excess calories; Z68.34 Body mass index [BMI] 34.0-34.9, adult; R79.89 Other specified abnormal findings of blood chemistry; Z71.6 Tobacco abuse counseling | CPT/HCPCS: 96127; 99212 ==

== ENCOUNTER → 2025-03-10 14:42 | Outpatient (REF) | payer MEDICARE, SELFPAY ==
--- NOTE | 2025-03-10 14:44 | CA_ITS ---
Transthoracic Echocardiogram Patient (Last, First, Middle): Tim Em, Gender: M Date of : 1960 Age: 64 Procedure Date: 03/10/2025 Procedure Type: Transthoracic Echocardiogram Location: OP Height: 167. 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 Normal LV ejection fraction 55-60% with grade 1 diastolic dysfunction 2. Normal cardiac valvular Dopplers 3. No gross pericardial effusion Findings Left Ventricle Normal left ventricular size, thickness, and systolic function. The visually estimated ejection fraction is between 55-60%. Spectral Doppler is indicative of an impaired relaxation filling pattern. E/E prime ratio is <8, consistent with normal filling pressures. Evidence suggests grade I (mild) diastolic dysfunction. There is mild septal asymmetric hypertrophy. Atria The left atrium is likely dilated. There is no evidence of interatrial shunt. The right atrium is normal in size. Aortic Valve Normal aortic valve structure and function. There is no aortic valve stenosis. There is no aortic valve regurgitation. Mitral Valve Normal mitral valve structure and function. There is trace mitral valve regurgitation. There is no mitral valve stenosis. Pulmonic Valve The pulmonic valve was not well visualized. Tricuspid Valve Normal tricuspid valve structure. Tricuspid regurgitation envelope is inadequate for calculation of right ventricular systolic pressure. Great Vessels All visible segments of the aorta are normal in size. The pulmonary artery was not well visualized. There is no dilatation of the ascending aorta measuring 3.30 cm. Venous The inferior vena cava is normal in size. Pericardium/Pleural There is no evidence of pericardial effusion. Prior Study Comparison No prior study available for comparison. Measurements 2D Linear Measurements IVSd: 1.16 0.6-0.9/0.6-1.0 cm LVIDd: 4.20 3.9-5.3/4.2-5.9 cm LVIDd Index: 2.08 2.4-3.2/2.2-3.1 cm/m2 LVIDs: 2.32 2.0-3.6 cm LVPWd: 1.17 0.7-1.1 cm LA Diam: 3.90 2.7-3.8/3.0-4.0 cm LAIDs Index: 1.93 1.5-2.3 cm/m2 LV Mass: 212.53 67-162/88-224 g LV Mass Index: 105.21 43-95/49-115 g/m2 LVOT Diam: 2.30 3.0+(-)1.3 cm 2D Systolic Function EF 4C: 61.30 >55% EF 2C: 55.60 >55% EF BiP: 58.60 >55% Mitral Valve MV Pk E: 0.63 MV PK A: 0.81 MV Decel Time: 193.00 E/A: 0.80 E'Lateral: 8.05 E'Medial: 5.00 E/E' Med: 12.50 E/E' Lat: 7.80 PHT: 56.00 MVA PHT: 3.93 Decel Logan: 3.24 Aortic Valve AoV Pk Dev: 1.11 AoV Mn Dev: 0.78 AoV VTI: 0.23 AoV Pk Grad: 5.00 Aov Mn Grad: 3.00 MAX Cont.VTI: 3.01 LVOT LVOT Pk Dev: 0.80 LVOT Mn Dev: 0.55 LVOT VTI: 0.17 LVOT Pk Grad: 3.00 LVOT Mn Grad: 1.00 LVOT Diam: 2.30 LVOT Area: 4.15 Diastolic Function MV Pk E: 0.63 MV Pk A: 0.81 E/A: 0.80 E'Medial: 5.00 E/E' Med: 12.50 E' Laterial: 8.05 E/E' Lat: 7.80 Right Ventricle TAPSE (mm): 22.20 TVS' Dev: 11.20 Great Vessels Aorta Sinus of Valsalva: 3.30 2.0-3.5 cm Ao Asc: 3.30 2.1-3.4 cm Ao Arch: 3.00 Pulmonary Veins Pulm Vein S/D 1.30 Pulmonary Valve PV Pk Dev: 0.94 Peak PV Grad: 4.00 Updated in Other Vendor System with Status of Final Melvin Osorio MD electronically signed on 03/11/2025 2:45:33 PM with status of Final
== END ==
LOC: HO.CARD 14:42
PROVIDERS: PCP Internal Medicine; Visit Provider Internal Medicine
DX: R06.02 Shortness of breath (principal); I44.0 Atrioventricular block, first degree
CPT/HCPCS: 93306

== ENCOUNTER → 2025-03-10 14:44 | Outpatient (BNV) | payer MEDICARE, SELFPAY | PROVIDERS: PCP Internal Medicine; Visit Provider Internal Medicine Cardiovascular Disease | DX: I42.2 Other hypertrophic cardiomyopathy (principal); R06.02 Shortness of breath | CPT/HCPCS: 93306 ==

== ENCOUNTER 2025-04-09 09:04 | Outpatient (AMB) | payer MEDICARE, SELFPAY ==
--- NOTE | 2025-04-09 09:07 | MHC.OFFVIS ---
Vital Signs 04/09/25 09:18 Height 5 ft 6 in Weight 208 lb BMI 33.6 Intake Visit Reasons: screening for malignant neoplasm of colon Intake Note: Patient presents for colonoscopy screening. Pt /o; reports no complaints at this time. 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 Allergy (Mild, Uncoded 04/09/25 09:19) none HPI HPI screening for malignant neoplasm of colon: Details: 64-year-old male referred for colon cancer screening. He she undergoes colonoscopy every 5 years because of the history of colon polyps. His last colonoscopy was in 2017. At that time, he was noted to have diverticulosis as well as hemorrhoids. He denies any significant GI complaints. He denies any significant family history of colon cancer. 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 Current occupational exposures/hazards: Yes Cognitive needs: No Hearing needs: No Vision needs: No Review of Systems Const Denies chills and Denies fever(s) Card Denies chest pain, Denies dyspnea and Denies dyspnea on exertion Resp Denies cough, Denies dyspnea and Denies dyspnea on exertion GI Denies hematochezia and Denies change in bowel habits Denies hematuria and Denies difficulty urinating Musc Denies back pain and Denies limited range of motion Neuro Denies focal weakness and Denies convulsions Psych Denies depression and Denies mood swings Physical Exam Const General: comfortable and no acute distress Orientation/consciousness: patient oriented x3 Neck Neck: Yes no lymphadenopathy Resp Auscultation: clear to auscultation bilaterally Cardio Rhythm: regular rhythm GI Palpation (GI): Soft to palpation, nontender and no guarding Neuro General: patient oriented x3 Assessment & Plan Assessment & Plan (1) Colon cancer screening: Code(s): Z12.11 - Encounter for screening for malignant neoplasm of colon Category: Medical Plan: He had a history of colon polyps and was told to have a colonoscopy every 5 years. I explained to the technique of colonoscopy for screening. I reviewed the risks including but not limited to bleeding and perforation, as well as the benefits and alternatives. He understands and wants to proceed. Medications: New sodium,potassium,mag sulfates 17.5-3.13-1.6 gram (Suprep Bowel Prep Kit) DILUTE; drink full amount early evening before AND next morning at least 2 hr before procedure; follow w 32 oz. water PO 354 mL 0RF Coding Level of Care Code New Pt Level 3 (89057) Diagnoses Colon cancer screening Z12.11
[2025-04-09 09:18] VITALS: BMI 33.6
== END 2025-04-09 09:26 | disposition home or self-care (01) ==
LOC: HO.HGS 09:05
PROVIDERS: PCP Internal Medicine; Visit Provider Surgery
DX: Z12.11 Encounter for screening for malignant neoplasm of colon (principal)
CPT/HCPCS: 99203

== ENCOUNTER → 2025-04-09 09:04 | Outpatient (BNVA) | payer MEDICARE, SELFPAY | PROVIDERS: PCP Internal Medicine; Visit Provider Surgery | DX: Z01.818 Encounter for other preprocedural examination (principal) | CPT/HCPCS: 99202 ==

== ENCOUNTER 2025-04-21 06:07 | Day surgery (SDC) | payer MEDICARE, SELFPAY ==
--- NOTE | 2025-04-17 09:37 | P.CONAN_ITS ---
Documented by User: Josseline Crawley NP 04/17/25 09:38 HPI - Anesthesia Eval Consult details Narrative: 64yo M for Colonoscopy with possible Polypectomy PMF Active Problems Active Problems: All Active Problems (Updated 01/21/25 @ 11:12 by Poonam Palomares MD) Fatigue (Acute) Foot pain, right (Acute) First degree AV block (Acute) Shortness of breath (Acute) Onychomycosis (Acute) Left lumbar radiculitis (Acute) Colon cancer screening (Acute) Tubular adenoma of colon (Acute) Abdominal pain (Acute) LFT elevation (Acute) Erectile dysfunction (Acute) Tendinopathy of right shoulder (Acute) Uncontrolled hypertension (Acute) Osteoarthritis of both knees (Acute) Limited internal rotation of glenohumeral joint of right shoulder (Acute) Obesity due to excess calories (Acute) Hypertension, essential (Acute) Obesity due to excess calories (Acute) Impaired fasting blood sugar (Acute) Allergic rhinitis (Acute) Bacterial arthritis of hip (Acute) Hip pain, right (Acute) Encounter for general adult medical examination with abnormal findings (Acute) Cellulitis (Acute) Surgical History Surgical History History of colonoscopy (~04/13/17) Social History Social History Housing: House Alcohol intake: current Alcohol intake frequency: does not drink Patient Tobacco Use Status: Never used Tobacco Tobacco use type: Cigar e-Cigarette/Vaping Use: Never Used Have you been hit, kicked, punched, or otherwise hurt by someone within the past year? 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 Allergy Mild none Uncoded 04/09/25 09:19 Exam Narrative Narrative: EKG 01/2025 SR with 1st deg AV block @ 62 ECHO 03/2025 Conclusions: - 1. Normal LV ejection fraction 55-60% with grade 1 diastolic dysfunction 2. Normal cardiac valvular Dopplers 3. No gross pericardial effusion Assessment and Plan Assessment Anesthesia Assessment: Chart Reviewed Documented by User: Barry Giraldo MD 04/21/25 10:32 [facility] Family History Family history of problems with anesthesia: No Surgical History Surgical History History of colonoscopy (~04/13/17) History of Problems with Anesthesia: No Social History Social History Housing: House Alcohol intake: current Alcohol intake frequency: does not drink Patient Tobacco Use Status: Never used Tobacco Tobacco use type: Cigar e-Cigarette/Vaping Use: Never Used Have you been hit, kicked, punched, or otherwise hurt by someone within the past year? 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 Allergy Mild none Uncoded 04/09/25 09:19 Exam Airway Mallampati Class: II TM Dist: >3cm Neck ROM: Full Loose/Missing/Broken Teeth: Yes Assessment and Plan Assessment Anesthesia Assessment: Anesthesia Plan Discussed Final Anesthetic Review Family History of Problems with Anesthesia: No History of Problems with Anesthesia: No NPO: Yes ASA Class: II Final Preanesthetic Review: No Changes in Pt Med Stat, Meds/Allgs Chart Reviewed, Consent Obtained/Reviewed and Anes Risks/Benef Reviewed Patient Risk: Low Procedure Risk: Low Anesthetic Plan Anesthetic Plan: MAC: Disposition: Standard PACU
[2025-04-21 05:43] VITALS: BMI 33.6
[2025-04-21 06:41] VITALS: BP 169/115; PULSE 96; RESP 18; TEMP 36.4; O2SAT 98; BMI 31.8
[2025-04-21] MEDS: Lactated Ringers 1,000 ML 100 ML IVCONT (06:52)
--- NOTE | 2025-04-21 07:25 | MHC.SHP ---
Pre-Procedural Eval Section A - 24 Hr Update-Section A only Date of Service: 04/21/25 The patient is an INPATIENT: No Changes since office visit: No Cold of Flu in the past 2 weeks, No New Medical Problems, No Changes in Medication and No Patient answered all questions The patient has been examined within 24 hours of the surgical procedure. The History & Physical has been completed within 30 days and I have reviewed it.: Yes Section B - Complete if H&P > 30 days Chief Complaint: screening Allergies: Allergies Allergy/AdvReac Type Severity Reaction Status Date / Time N.K.D.A. Allergy Mild none Uncoded 04/09/25 09:19 Plan I have reviewed the history and physical and performed a pertinent physical examination on my patient. No changes have occurred unless specified. Time Spent With Patient Time: Total time managing care of this patient today ____ minutes.
[2025-04-21 08:06] VITALS: BP 115/83; PULSE 96; RESP 22; TEMP 36.4; O2SAT 95
--- NOTE | 2025-04-21 08:10 | W.PM.OPN ---
Operative Note Operative Note Date of Service: 04/21/25 Narrative: Preop diagnosis : history of colon polyps Postop diagnosis: 1. Small polyp about 2-3 mm, in the hepatic flexure removed with cold forceps 2. Small polyp about 2 mm at level 18 cm, removed with cold forceps 3. Small internal hemorrhoids Procedure: Colonoscopy with polypectomy using cold forceps x2 Surgeon: Mirza Willett MD The patient is a 64-year-old male who was referred to de for colonoscopy. He apparently had history of colon polyps and was told to have another colonoscopy within 5 years of his last 1 which was in 2017. He understood the technique planned procedure as was the risks, benefits, alternatives. The patient was brought to the operating room and placed in left lateral decubitus position under monitored anesthesia care. A surgical time-out was done. A full digital rectal exam was done and this did not reveal any significant anal lesions. The tip of the Olympus colonoscope was gently introduced through the anal orifice advanced with insufflation all the way to the cecum. The cecum was intubated. The cecum was identified by visualization of the ileocecal valve as well as the appendiceal orifice. The cecal mucosa was unremarkable. The scope was gradually withdrawn with careful examination of the entire colonic mucosa being done with scope withdrawal. The patient had adequate bowel prep so it was unlikely that any lesion may have been missed. In the hepatic flexure, was note of a small polyp about 2-3 mm. This was removed using multiple bites of the cold forceps. Another small polyp, about 2 mm was seen at level 18, removed with cold forceps as well. The rectum was reached and there were no lesions seen. The anal canal was unremarkable except for small hemorrhoids. The scope was then withdrawn completely with desufflation. The patient tolerated procedure well. There were no immediate complications. The appendix was in his path report, he has next colonoscopy may be in the next 10 years.
[2025-04-21 08:22] VITALS: BP 174/96; PULSE 76; RESP 19; TEMP 36.4; O2SAT 97
== END 2025-04-21 08:42 | disposition home or self-care (01) ==
PROVIDERS: PCP Internal Medicine; Visit Provider Surgery
PROC: 0DBE8ZZ Excision of Large Intestine, Via Natural or Artificial Opening Endoscopic (ICD-10-PCS; principal; 2025-04-21 07:30)
DX: Z12.11 Encounter for screening for malignant neoplasm of colon (principal); Z86.0101 Personal history of adenomatous and serrated colon polyps; D12.3 Benign neoplasm of transverse colon; K63.5 Polyp of colon; K64.8 Other hemorrhoids
CPT/HCPCS: 45380; 88305; J2003; J2704

== ENCOUNTER → 2025-04-21 06:07 | Outpatient (BNV) | payer MEDICARE, SELFPAY | PROVIDERS: PCP Internal Medicine; Visit Provider Surgery | DX: Z12.11 Encounter for screening for malignant neoplasm of colon (principal); K63.5 Polyp of colon; K64.8 Other hemorrhoids | CPT/HCPCS: 45380 ==

== ENCOUNTER 2025-05-04 08:56 | Outpatient (AMB) | payer MEDICARE, SELFPAY ==
--- NOTE | 2025-05-04 08:57 | MHC.OFFVIS ---
Vital Signs 05/04/25 09:12 Height 5 ft 6 in Weight 205 lb BMI 33.1 Intake Visit Reasons: S/P colonoscopy Intake Note: Patient presents for a follow-up assessment status post colonoscopy. Pt c/o; no complaints. Stain Remover Required: No Accompanied by: Self / Same As Patient Allergies N.K.D.A. Allergy (Mild, Uncoded 05/04/25 09:12) none Medication List - Last Reconciled 05/04/25 by Mirza Willett MD cetirizine (Zyrtec) 10 mg PO DAILY PRN 90 days spironolactone 50 mg PO DAILY HPI HPI S/P colonoscopy: Details: He had undergone a colonoscopy last 04/21/2025 for colon cancer screening. He tolerated procedure well. He denies any significant complaints post procedure. 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 Current occupational exposures/hazards: Yes Cognitive needs: No Hearing needs: No Vision needs: No Review of Systems Const Denies chills and Denies fever(s) Card Denies chest pain, Denies dyspnea and Denies dyspnea on exertion Resp Denies cough, Denies dyspnea and Denies dyspnea on exertion GI Denies hematochezia and Denies change in bowel habits Denies hematuria and Denies difficulty urinating Musc Denies back pain and Denies limited range of motion Neuro Denies focal weakness and Denies convulsions Psych Denies depression and Denies mood swings Physical Exam Vital Signs: BMI result Body Mass Index 33.1 Const General: comfortable and no acute distress Resp Effort & Inspection: normal respiratory effort GI Palpation (GI): Soft to palpation, not firm and nontender Assessment & Plan Assessment & Plan (1) Tubular adenoma of colon: Code(s): D12.6 - Benign neoplasm of colon, unspecified Category: Medical Plan: He had a colonoscopy in 04/21/2025 and I removed 2 small polyps. Both of these were tubular adenomas . In view of the size of the polyps, his colonoscopy may be in the next 5-10 years. He understands the plan well. Coding Level of Care Code Est Pt Level 3 (40383) Diagnoses Tubular adenoma of colon D12.6
[2025-05-04 09:12] VITALS: BMI 33.1
== END 2025-05-04 09:24 | disposition home or self-care (01) ==
LOC: HO.HGS 08:57
PROVIDERS: PCP Internal Medicine; Visit Provider Surgery
DX: D12.6 Benign neoplasm of colon, unspecified (principal)
CPT/HCPCS: 99213

== ENCOUNTER → 2025-05-04 08:56 | Outpatient (BNVA) | payer SELFPAY | PROVIDERS: PCP Internal Medicine; Visit Provider Surgery | DX: D12.6 Benign neoplasm of colon, unspecified (principal) | CPT/HCPCS: 99212 ==